=== PATIENT | male | born 1945 | race African-American/Black ===

== ENCOUNTER 2017-02-02 13:53 | Emergency (ER) | payer MEDICARE, MEDICAID ==
[~2017-02-02] VITALS: Ht 182.9 cm; Wt 59.0 kg
[~2017-02-02 13:53] MED LIST: ALBU18 INH; ASPI81CH43 PO; Atorvastatin Calcium PO; FLUT110A INH; OME20GT PO; ZOLP10TA6 PO
[2017-02-02 15:23] LABS: Basophils # (auto) 0.2 uL; Basophils % (auto) 2.7 % (0.0-2.0); Eosinophils # (auto) 0.2 uL; Eosinophils % (auto) 3.5 % (0.0-7.0); Hematocrit 50.7 % (41.0-53.0); Hemoglobin 16.5 g/dL (13.5-17.5); Lymphocytes # (auto) 3.2 uL; Lymphocytes % (auto) 48.8 % (10.0-50.0); Mean Corpuscular Hemoglobin 29.7 pg (28.0-32.0); Mean Corpuscular Hgb Conc. 32.5 g/dL (32.0-36.0); Mean Corpuscular Volume 91.4 fL (80.0-100.0); Mean Platelet Volume 9.4 fL (7.4-10.4); Monocytes # (auto) 0.6 uL; Monocytes % (auto) 8.7 % (0.0-12.0); Neutrophils # (auto) 2.4 uL; Neutrophils % (auto) 36.3 % (37.0-80.0); Platelet Count (auto) 248 10^3/uL (140-450); Red Cell Distribution Width 15.5 % (11.6-16.0); SUSPECT VIEW TRANSMISSION; White Blood Cell 6.6 10^3/uL (4.4-10.8)
[2017-02-02 15:59] LABS: Albumin 3.3 g/dL (3.4-5.0); Alkaline Phosphatase 99 U/L (45-117); Anion Gap 9 (5-15); Aspartate Aminotransferase 19 U/L (15-37); BUN/Creatinine Ratio 10.8; Bilirubin, Total 0.5 mg/dL (0.2-1.0); Blood Urea Nitrogen 23 mg/dL (7-18); Calcium 9.1 mg/dL (8.5-10.1); Carbon Dioxide 30 mmol/L (21-32); Chloride 103 mmol/L (98-107); GFR African American 40 mL/min; GFR Non-African American 33 mL/min; Glucose 98 mg/dL (74-106); Sodium 142 mmol/L (136-145); Total Protein 7.8 g/dL (6.4-8.2)
[2017-02-02 16:37] VITALS: BP 156/40
[2017-02-02 16:43] LABS: INR 1.05 (0.9-1.15); Prothrombin Time 11.3 sec (9.37-12.3)
[2017-02-02] MEDS ORDERED: LABETALOL HCL 5 MG/ML 4ML SYRINGE IV ONE (16:45)
[2017-02-02 16:58] LABS: Anisocytosis Slight; Large Platelets FEW; Platelet Estimate Adequate
[2017-02-02 16:59] LABS: Tear Drop Cells FEW
== END 2017-02-02 18:43 | disposition short-term general hospital (02) ==
LOC: ER 13:53 → EDBD 13:53 → ER 18:43
DX: I62.9 Nontraumatic intracranial hemorrhage, unspecified (principal); J44.9 Chronic obstructive pulmonary disease, unspecified; K21.9 Gastro-esophageal reflux disease without esophagitis; I10 Essential (primary) hypertension; F17.210 Nicotine dependence, cigarettes, uncomplicated; Z87.11 Personal history of peptic ulcer disease
CPT/HCPCS: 36415; 70450; 80053; 84484; 85025; 85610; 93005; 99291

== ENCOUNTER 2017-10-25 22:08 | Inpatient (IN) | payer MEDICARE, MEDICAID ==
[~2017-10-25] VITALS: Ht 177.8 cm; Wt 56.9 kg
[2017-10-25] MEDS ORDERED: methylPREDNISolone SOD SUCC 125 MG/2 ML VL ONE (22:17)
[2017-10-25] MEDS ORDERED: cloNIDine HCL 0.1 MG TAB ONE (22:23)
[2017-10-25] MEDS ORDERED: cloNIDine HCL 0.1 MG TAB PO ONE (22:30)
[2017-10-25] MEDS ORDERED: DILTIAZEM HCL 25 MG/5 ML VIAL IV ONE (22:30)
[2017-10-25] MEDS ORDERED: methylPREDNISolone SOD SUCC 125 MG/2 ML VL IV ONE (22:30)
[2017-10-25 22:38] LABS: Basophils # (auto) 0.1 uL; Basophils % (auto) 0.7 % (0.0-2.0); Eosinophils # (auto) 0 uL; Eosinophils % (auto) 0.2 % (0.0-7.0); Hematocrit 53.2 % (41.0-53.0); Hemoglobin 17.7 g/dL (13.5-17.5); Lymphocytes # (auto) 2.3 uL; Lymphocytes % (auto) 15.1 % (10.0-50.0); Mean Corpuscular Hemoglobin 31.6 pg (28.0-32.0); Mean Corpuscular Hgb Conc. 33.3 g/dL (32.0-36.0); Mean Corpuscular Volume 94.9 fL (80.0-100.0); Monocytes # (auto) 0.8 uL; Monocytes % (auto) 5.2 % (0.0-12.0); Neutrophils # (auto) 12.3 uL; Neutrophils % (auto) 78.8 % (37.0-80.0); Nucleated Red Blood Cells % 0.1 %; Platelet Count (auto) 251 10^3/uL (140-450); Red Blood Cells 5.61 10^6/uL (4.5-5.90); Red Cell Distribution Width 14.7 % (11.8-14.3); White Blood Cell 15.6 10^3/uL (4.4-10.8)
[2017-10-25 22:53] LABS: Alanine Aminotransferase 23 U/L (16-61); Albumin 3.6 g/dL (3.4-5.0); Anion Gap 10 (5-15); Aspartate Aminotransferase 47 U/L (15-37); BUN/Creatinine Ratio 10.7; Blood Urea Nitrogen 18 mg/dL (7-18); Calcium 8.9 mg/dL (8.5-10.1); Carbon Dioxide 22 mmol/L (21-32); Chloride 104 mmol/L (98-107); GFR African American 52 mL/min; GFR Non-African American 43 mL/min; Glucose 110 mg/dL (74-106); Magnesium 2.1 mg/dL (1.6-2.6); Potassium 5.5 mmol/L (3.5-5.1); Sodium 136 mmol/L (136-145)
[2017-10-25 22:55] LABS: Alkaline Phosphatase 110 U/L (45-117); Bilirubin, Total 0.6 mg/dL (0.2-1.0)
[2017-10-26] VITALS (7 sets, daily range): BP systolic 114–141; BP diastolic 54–101
[2017-10-26 01:21] LABS: Urine WBC None Seen /hpf (0 - 3)
[2017-10-26] MEDS ORDERED: FOLIC ACID 1 MG TAB PO ONE (01:45)
[2017-10-26] MEDS ORDERED: OMEPRAZOLE 20MG/10ML ORAL SUSP GT ONE (01:45)
[2017-10-26] MEDS ORDERED: amLODIPine BESYLATE 5 MG TAB PO ONE (01:45)
[2017-10-26] MEDS ORDERED: ZOLPIDEM TARTRATE 5 MG TAB PO ONE (01:45)
[2017-10-26] MEDS ORDERED: FUROSEMIDE 40 MG/4 ML VIAL IV ONE (01:45)
[2017-10-26 01:46] LABS: Urine Amorphous Crystal MOD /hpf (None Seen); Urine Bacteria MOD /hpf (None Seen); Urine Blood 1+ /uL (Negative); Urine Specific Gravity 1.014 (1.001-1.035)
[2017-10-26] MEDS ORDERED: ACETAMINOPHEN 500 MG TAB PO PRN (03:30)
[2017-10-26] MEDS ORDERED: ONDANSETRON HCL 4 MG/2 ML VIAL IV PRN (03:30)
[2017-10-26] MEDS ORDERED: HYDROcodone-ACET 5/325MG TAB PO PRN (03:30)
[2017-10-26 04:32] LABS: Basophils # (auto) 0 uL; Basophils % (auto) 0.2 % (0.0-2.0); Eosinophils # (auto) 0 uL; Hematocrit 51.2 % (41.0-53.0); Hemoglobin 16.9 g/dL (13.5-17.5); Lymphocytes # (auto) 0.5 uL; Lymphocytes % (auto) 2.7 % (10.0-50.0); Mean Corpuscular Hemoglobin 31.2 pg (28.0-32.0); Mean Corpuscular Hgb Conc. 32.9 g/dL (32.0-36.0); Mean Corpuscular Volume 94.7 fL (80.0-100.0); Monocytes # (auto) 0.1 uL; Monocytes % (auto) 0.5 % (0.0-12.0); Neutrophils % (auto) 96.6 % (37.0-80.0); Nucleated Red Blood Cells % 0.1 %; Platelet Count (auto) 236 10^3/uL (140-450); Red Blood Cells 5.41 10^6/uL (4.5-5.90); Red Cell Distribution Width 14.4 % (11.8-14.3); White Blood Cell 18.7 10^3/uL (4.4-10.8)
[2017-10-26] MEDS ORDERED: ENALAPRILAT 1.25 MG/ML-1ML VIAL IV ONE (04:45)
[2017-10-26 04:46] LABS: Albumin 3.3 g/dL (3.4-5.0); BUN/Creatinine Ratio 9.9; Calcium 9.3 mg/dL (8.5-10.1); Potassium 3.3 mmol/L (3.5-5.1)
[2017-10-26 04:47] LABS: Bilirubin, Total 0.7 mg/dL (0.2-1.0); Total Protein 7.9 g/dL (6.4-8.2)
[2017-10-26] MEDS ORDERED: AZITHROMYCIN 500MG/ 250ML 250 ML IV ONE (05:00)
[2017-10-26] MEDS: ALBUTEROL SULF 2.5 MG/0.5ML(0.5%) NEB SOLN NEB SCH ×3 (08:23→19:05)
[2017-10-26] MEDS: IPRATROPIUM BROM 0.5 MG/2.5ML INH SOL NEB SCH ×3 (08:24→19:05)
[2017-10-26] MEDS: ASPirin 81 mg TAB PO SCH (10:00)
[2017-10-26] MEDS: amLODIPine BESYLATE 5 MG TAB PO SCH (10:02)
[2017-10-26] MEDS ORDERED: SODIUM CHLORIDE 0.9% 1,000 ML IV ONE (13:15)
[2017-10-26] MEDS ORDERED: predniSONE 20 MG TAB PO ONE (13:22)
[2017-10-26] MEDS ORDERED: diphenhdrAMINE HCL 50 MG/1 ML VL IV PRN (13:30)
[2017-10-26] MEDS: SOD CHL 0.45% WITH 20MEQ KCL 1,000 ML IV SCH (16:00)
[2017-10-26] MEDS: ATORVASTATIN 20 MG TAB PO SCH (21:58)
[2017-10-26] MEDS: ZOLPIDEM TARTRATE 5 MG TAB PO SCH (21:58)
[2017-10-27] VITALS (7 sets, daily range): BP systolic 122–158; BP diastolic 74–99
[2017-10-27] MEDS: ALBUTEROL SULF 2.5 MG/0.5ML(0.5%) NEB SOLN NEB SCH ×4 (00:38→18:57)
[2017-10-27] MEDS: IPRATROPIUM BROM 0.5 MG/2.5ML INH SOL NEB SCH ×4 (00:38→18:57)
[2017-10-27] MEDS: SOD CHL 0.45% WITH 20MEQ KCL 1,000 ML IV SCH ×2 (03:50→16:16)
[2017-10-27] MEDS: cefTRIAXone 1GM/10ml IVPUSH 10 ML IV SCH ×2 (07:22→09:15)
[2017-10-27] MEDS: AZITHROMYCIN 500MG/ 250ML 250 ML IV SCH (09:16)
[2017-10-27] MEDS: predniSONE 20 MG TAB PO SCH (09:17)
[2017-10-27] MEDS: amLODIPine BESYLATE 5 MG TAB PO SCH (09:17)
[2017-10-27] MEDS: ASPirin 81 mg TAB PO SCH (09:17)
[2017-10-27 19:19] LABS: Basophils # (auto) 0.1 uL; Basophils % (auto) 0.7 % (0.0-2.0); Eosinophils # (auto) 0 uL; Hematocrit 50.9 % (41.0-53.0); Lymphocytes # (auto) 1.1 uL; Lymphocytes % (auto) 7.5 % (10.0-50.0); Mean Corpuscular Hemoglobin 31.8 pg (28.0-32.0); Mean Corpuscular Hgb Conc. 33.5 g/dL (32.0-36.0); Mean Corpuscular Volume 95.1 fL (80.0-100.0); Monocytes # (auto) 0.4 uL; Monocytes % (auto) 2.8 % (0.0-12.0); Neutrophils # (auto) 12.6 uL; Nucleated Red Blood Cells % 0.2 %; Platelet Count (auto) 235 10^3/uL (140-450); Red Blood Cells 5.35 10^6/uL (4.5-5.90); Red Cell Distribution Width 14.8 % (11.8-14.3); White Blood Cell 14.2 10^3/uL (4.4-10.8)
[2017-10-27 19:34] LABS: BUN/Creatinine Ratio 17.8
[2017-10-27 19:35] LABS: Calcium 9.3 mg/dL (8.5-10.1)
[2017-10-27] MEDS: ATORVASTATIN 20 MG TAB PO SCH (21:44)
[2017-10-27] MEDS: ZOLPIDEM TARTRATE 5 MG TAB PO SCH (21:44)
[2017-10-28] VITALS (8 sets, daily range): BP systolic 120–159; BP diastolic 71–104
[2017-10-28] MEDS: IPRATROPIUM BROM 0.5 MG/2.5ML INH SOL NEB SCH ×4 (00:48→19:43)
[2017-10-28] MEDS: ALBUTEROL SULF 2.5 MG/0.5ML(0.5%) NEB SOLN NEB SCH ×4 (00:48→19:43)
[2017-10-28] MEDS: SOD CHL 0.45% WITH 20MEQ KCL 1,000 ML IV SCH ×2 (07:00→19:50)
[2017-10-28 08:32] LABS: Basophils # (auto) 0.1 uL; Basophils % (auto) 0.6 % (0.0-2.0); Eosinophils # (auto) 0 uL; Eosinophils % (auto) 0.1 % (0.0-7.0); Hematocrit 50.6 % (41.0-53.0); Hemoglobin 16.9 g/dL (13.5-17.5); Lymphocytes # (auto) 3.2 uL; Lymphocytes % (auto) 23.5 % (10.0-50.0); Mean Corpuscular Hemoglobin 31.6 pg (28.0-32.0); Mean Corpuscular Hgb Conc. 33.3 g/dL (32.0-36.0); Mean Corpuscular Volume 94.7 fL (80.0-100.0); Monocytes # (auto) 0.9 uL; Monocytes % (auto) 6.8 % (0.0-12.0); Neutrophils # (auto) 9.5 uL; Platelet Count (auto) 238 10^3/uL (140-450); Red Blood Cells 5.34 10^6/uL (4.5-5.90); Red Cell Distribution Width 14.9 % (11.8-14.3); White Blood Cell 13.8 10^3/uL (4.4-10.8)
[2017-10-28 08:38] LABS: Calcium 9.2 mg/dL (8.5-10.1); Potassium 4.1 mmol/L (3.5-5.1)
[2017-10-28 08:41] LABS: BUN/Creatinine Ratio 19.4
[2017-10-28] MEDS: cefTRIAXone 1GM/10ml IVPUSH 10 ML IV SCH ×2 (09:00→09:10)
[2017-10-28] MEDS: ASPirin 81 mg TAB PO SCH (09:10)
[2017-10-28] MEDS: amLODIPine BESYLATE 5 MG TAB PO SCH (09:11)
[2017-10-28] MEDS: predniSONE 20 MG TAB PO SCH (09:11)
[2017-10-28] MEDS: AZITHROMYCIN 500MG/ 250ML 250 ML IV SCH (09:12)
[2017-10-28] MEDS: CAPTOPRIL 25 MG TAB PO PRN (17:16)
[2017-10-28] MEDS: ZOLPIDEM TARTRATE 5 MG TAB PO SCH (21:41)
[2017-10-28] MEDS: ATORVASTATIN 20 MG TAB PO SCH (21:41)
[2017-10-28] MEDS: Boost Glucose Control 8 Ounces PO SCH (21:41)
[2017-10-29] VITALS (7 sets, daily range): BP systolic 150–164; BP diastolic 88–120
[2017-10-29] MEDS: CAPTOPRIL 25 MG TAB PO PRN (04:52)
[2017-10-29 05:48] LABS: Basophils # (auto) 0.1 uL; Eosinophils # (auto) 0 uL; Eosinophils % (auto) 0.1 % (0.0-7.0); Monocytes # (auto) 0.7 uL; Nucleated Red Blood Cells % 0.1 %
[2017-10-29 05:51] LABS: Hematocrit 52.7 % (41.0-53.0); Hemoglobin 17.5 g/dL (13.5-17.5); Lymphocytes # (auto) 2.4 uL; Lymphocytes % (auto) 18.8 % (10.0-50.0); Mean Corpuscular Hemoglobin 31.8 pg (28.0-32.0); Mean Corpuscular Hgb Conc. 33.1 g/dL (32.0-36.0); Mean Corpuscular Volume 95.9 fL (80.0-100.0); Monocytes % (auto) 5.5 % (0.0-12.0); Neutrophils # (auto) 9.6 uL; Neutrophils % (auto) 74.6 % (37.0-80.0); Platelet Count (auto) 269 10^3/uL (140-450); Red Cell Distribution Width 14.6 % (11.8-14.3); White Blood Cell 12.8 10^3/uL (4.4-10.8)
[2017-10-29] MEDS: Boost Glucose Control 8 Ounces PO SCH ×3 (05:52→22:00)
[2017-10-29 06:24] LABS: Lactic Acid w/Reflex 2.2 mmol/L (0.4-2.0)
[2017-10-29 06:24] LABS: BUN/Creatinine Ratio 17.8; Calcium 8.8 mg/dL (8.5-10.1); Magnesium 2.5 mg/dL (1.6-2.6); Potassium 4.4 mmol/L (3.5-5.1)
[2017-10-29] MEDS: ALBUTEROL SULF 2.5 MG/0.5ML(0.5%) NEB SOLN NEB SCH ×4 (06:55→19:31)
[2017-10-29] MEDS: IPRATROPIUM BROM 0.5 MG/2.5ML INH SOL NEB SCH ×4 (06:55→19:30)
[2017-10-29] MEDS: amLODIPine BESYLATE 5 MG TAB PO SCH (08:23)
[2017-10-29] MEDS ORDERED: cloNIDine HCL 0.1 MG TAB PO PRN (08:30)
[2017-10-29] MEDS: cefTRIAXone 1GM/10ml IVPUSH 10 ML IV SCH (09:17)
[2017-10-29] MEDS: ASPirin 81 mg TAB PO SCH (09:18)
[2017-10-29] MEDS: predniSONE 20 MG TAB PO SCH (09:18)
[2017-10-29] MEDS: AZITHROMYCIN 500MG/ 250ML 250 ML IV SCH (09:18)
[2017-10-29] MEDS: LISINOPRIL 10 MG TAB PO SCH (09:19)
[2017-10-29] MEDS: ZOLPIDEM TARTRATE 5 MG TAB PO SCH (21:30)
[2017-10-29] MEDS: ATORVASTATIN 20 MG TAB PO SCH (21:30)
[2017-10-30 05:00] VITALS: BP 160/108
[2017-10-30 05:43] LABS: Basophils # (auto) 0.1 uL; Eosinophils # (auto) 0 uL; Hematocrit 50.4 % (41.0-53.0); Hemoglobin 16.9 g/dL (13.5-17.5); Lymphocytes # (auto) 2.5 uL; Lymphocytes % (auto) 18.9 % (10.0-50.0); Mean Corpuscular Hemoglobin 32.1 pg (28.0-32.0); Mean Corpuscular Hgb Conc. 33.6 g/dL (32.0-36.0); Mean Corpuscular Volume 95.4 fL (80.0-100.0); Monocytes # (auto) 0.6 uL; Monocytes % (auto) 4.7 % (0.0-12.0); Neutrophils # (auto) 9.8 uL; Neutrophils % (auto) 75.4 % (37.0-80.0); Nucleated Red Blood Cells % 0.1 %; Platelet Count (auto) 243 10^3/uL (140-450); Red Blood Cells 5.29 10^6/uL (4.5-5.90); Red Cell Distribution Width 14.8 % (11.8-14.3)
[2017-10-30] MEDS: Boost Glucose Control 8 Ounces PO SCH (06:00)
[2017-10-30 06:01] LABS: BUN/Creatinine Ratio 18.6; Potassium 4.5 mmol/L (3.5-5.1)
[2017-10-30] MEDS: IPRATROPIUM BROM 0.5 MG/2.5ML INH SOL NEB SCH ×3 (06:47→11:57)
[2017-10-30] MEDS: ALBUTEROL SULF 2.5 MG/0.5ML(0.5%) NEB SOLN NEB SCH ×3 (06:47→11:57)
[2017-10-30] MEDS: cefTRIAXone 1GM/10ml IVPUSH 10 ML IV SCH (09:28)
[2017-10-30] MEDS: predniSONE 20 MG TAB PO SCH (09:28)
[2017-10-30] MEDS: LISINOPRIL 10 MG TAB PO SCH (09:29)
[2017-10-30] MEDS: ASPirin 81 mg TAB PO SCH (09:30)
[2017-10-30] MEDS: amLODIPine BESYLATE 5 MG TAB PO SCH (09:30)
[2017-10-30] MEDS: AZITHROMYCIN 500MG/ 250ML 250 ML IV SCH (09:46)
[2017-10-30] MEDS ORDERED: IPR002IS NEB (12:22)
[2017-10-30] MEDS ORDERED: ALB5IS NEB (12:22)
[2017-10-30] MEDS ORDERED: AZIT250T8 PO (12:23)
[2017-10-30] MEDS ORDERED: METH4PAK PO (12:23)
[2017-10-30] MEDS ORDERED: LISI10TA6 PO (12:23)
[2017-10-30 13:00] VITALS: BP 145/93
[2017-12-26] MEDS ORDERED: UMEC1AER IN (11:39)
== END 2017-10-30 16:20 | disposition home health service (06) | DRG 189 ==
LOC: EDUNIT# 22:08 → EDBD 22:08 → ER 22:16 → TELE 22:17 → TELE-WESTW 10-26 06:13
PROVIDERS: ADMIT Nurse Practitioner Family; ATTEND Internal Medicine
PROC: 5A09357 Assistance with Respiratory Ventilation, Less than 24 Consecutive Hours, Continuous Positive Airway Pressure (ICD-10-PCS; principal; 2017-10-25)
DX: J96.20 Acute and chronic respiratory failure, unspecified whether with hypoxia or hypercapnia (principal); E87.2 Acidosis; I13.0 Hypertensive heart and chronic kidney disease with heart failure and stage 1 through stage 4 chronic kidney disease, or unspecified chronic kidney disease; E87.5 Hyperkalemia; I50.9 Heart failure, unspecified; J44.1 Chronic obstructive pulmonary disease with (acute) exacerbation; N18.9 Chronic kidney disease, unspecified; K21.9 Gastro-esophageal reflux disease without esophagitis; K27.9 Peptic ulcer, site unspecified, unspecified as acute or chronic, without hemorrhage or perforation; D72.829 Elevated white blood cell count, unspecified; E87.6 Hypokalemia; F17.210 Nicotine dependence, cigarettes, uncomplicated; R79.1 Abnormal coagulation profile; Z79.51 Long term (current) use of inhaled steroids; Z79.899 Other long term (current) drug therapy; Z82.0 Family history of epilepsy and other diseases of the nervous system; Z82.3 Family history of stroke; Z82.49 Family history of ischemic heart disease and other diseases of the circulatory system; Z83.3 Family history of diabetes mellitus; Z87.11 Personal history of peptic ulcer disease; Z86.73 Personal history of transient ischemic attack (TIA), and cerebral infarction without residual deficits; Z93.1 Gastrostomy status; Z87.01 Personal history of pneumonia (recurrent)
CPT/HCPCS: 36415; 36600; 51702; 71045; 78582; 80048; 80053; 81001; 82805; 83605; 83735; 84484; 85025; 85379; 87040; 87077; 87081; 87086; 87186; 87400; 92610; 93005; 94640; 94660; 96365; 96375; 97163

== ENCOUNTER 2017-11-18 04:13 | Inpatient (IN) | payer MEDICARE, MEDICAID ==
[~2017-11-18] VITALS: Ht 180.3 cm; Wt 46.9 kg
[~2017-11-18 04:13] MED LIST changes: +ALB5IS NEB; +AZIT250T8 PO; +IPR002IS NEB; +LISI10TA6 PO; +METH4PAK PO
[2017-11-18] MEDS ORDERED: PANTOPRAZOLE 40 MG/10 ML VIAL IV ONE ×2 (04:30→06:43)
[2017-11-18] MEDS ORDERED: PANTOPRAZOLE 80 MG in SODIUM CHL 0.9% 60 ML IV ONE (04:30)
[2017-11-18] MEDS ORDERED: SODIUM CHLORIDE 0.9% 1,000 ML IV ONE ×2 (04:45→06:00)
[2017-11-18 04:57] LABS: Basophils # (auto) 0.1 uL; Eosinophils # (auto) 0 uL; Eosinophils % (auto) 0.4 % (0.0-7.0); Lymphocytes # (auto) 1.9 uL; Monocytes # (auto) 0.5 uL; Monocytes % (auto) 4.7 % (0.0-12.0); Neutrophils # (auto) 8.1 uL
[2017-11-18 04:58] LABS: Basophils % (auto) 1.2 % (0.0-2.0); Hemoglobin 20.2 g/dL (13.5-17.5); Mean Corpuscular Hgb Conc. 33.5 g/dL (32.0-36.0); Mean Corpuscular Volume 95.4 fL (80.0-100.0); Neutrophils % (auto) 75.7 % (37.0-80.0); Nucleated Red Blood Cells % 0.1 %; Platelet Count (auto) 184 10^3/uL (140-450); Red Blood Cells 6.31 10^6/uL (4.5-5.90); Red Cell Distribution Width 15.3 % (11.8-14.3); White Blood Cell 10.7 10^3/uL (4.4-10.8)
[2017-11-18 05:15] LABS: INR 1.06 (0.9-1.15); Partial Thromboplastin Time 27.5 sec (22.64-33.71); Prothrombin Time 11.6 sec (9.37-12.3)
[2017-11-18 05:23] LABS: Alanine Aminotransferase 26 U/L (16-61); Albumin 2.9 g/dL (3.4-5.0); Alkaline Phosphatase 98 U/L (45-117); Anion Gap 14 (5-15); Aspartate Aminotransferase 28 U/L (15-37); BUN/Creatinine Ratio 23.2; Bilirubin, Total 0.6 mg/dL (0.2-1.0); Calcium 9.3 mg/dL (8.5-10.1); Carbon Dioxide 22 mmol/L (21-32); Chloride 107 mmol/L (98-107); GFR African American 15 mL/min; GFR Non-African American 13 mL/min; Glucose 143 mg/dL (74-106); Sodium 143 mmol/L (136-145); Total Protein 8.2 g/dL (6.4-8.2)
[2017-11-18 05:27] LABS: Blood Urea Nitrogen 112 mg/dL (7-18)
[2017-11-18 05:41] LABS: Hematocrit 60.1 % (41.0-53.0)
[2017-11-18] MEDS ORDERED: SODIUM CHLORIDE 0.9% 1,000 ML IV SCH (07:45)
[2017-11-18] MEDS ORDERED: MORPHINE SULFATE 4 MG/ML SYR/VIAL IV PRN (07:45)
[2017-11-18] MEDS ORDERED: NITROGLYCERIN 0.4 MG SL TAB SL PRN (07:45)
[2017-11-18 07:55] LABS: Urine Bacteria NONE SEEN /hpf (None Seen); Urine Blood Negative /uL (Negative); Urine Mucus FEW (None Seen); Urine Specific Gravity 1.015 (1.001-1.035); Urine WBC 4 /hpf (0 - 3)
[2017-11-18 12:43] LABS: Hematocrit 55.3 % (41.0-53.0); Hemoglobin 17.9 g/dL (13.5-17.5)
[2017-11-18] MEDS: SODIUM CHLORIDE 0.9% 1,000 ML IV SCH ×2 (13:18→17:31)
[2017-11-18 13:25] LABS: Protein, Urine 54.9 mg/dL (0.0-11.9)
[2017-11-18] MEDS ORDERED: AZITHROMYCIN 500MG/ 250ML 250 ML IV ONE (16:00)
[2017-11-18 17:07] VITALS: BP 128/58
[2017-11-18 19:08] LABS: Hemoglobin 15.2 g/dL (13.5-17.5)
[2017-11-18 20:00] VITALS: BP 119/77
[2017-11-18] MEDS ORDERED: TEMAZEPAM 15 MG CAP PO SCH (22:00)
[2017-11-18 22:10] VITALS: BP 119/77
[2017-11-19] MEDS: SODIUM CHLORIDE 0.9% 1,000 ML IV SCH ×3 (00:09→12:54)
[2017-11-19 05:11] VITALS: BP 117/69
[2017-11-19 08:09] LABS: Basophils # (auto) 0.1 uL; Basophils % (auto) 0.5 % (0.0-2.0); Eosinophils # (auto) 0.2 uL; Eosinophils % (auto) 1.8 % (0.0-7.0); Hematocrit 48.7 % (41.0-53.0); Hemoglobin 15.2 g/dL (13.5-17.5); Lymphocytes # (auto) 2.2 uL; Lymphocytes % (auto) 19.1 % (10.0-50.0); Mean Corpuscular Hemoglobin 31.9 pg (28.0-32.0); Mean Corpuscular Hgb Conc. 31.3 g/dL (32.0-36.0); Mean Corpuscular Volume 101.9 fL (80.0-100.0); Monocytes # (auto) 0.5 uL; Monocytes % (auto) 3.8 % (0.0-12.0); Neutrophils # (auto) 8.8 uL; Neutrophils % (auto) 74.8 % (37.0-80.0); Nucleated Red Blood Cells % 0.1 %; Platelet Count (auto) 146 10^3/uL (140-450); Red Blood Cells 4.77 10^6/uL (4.5-5.90); Red Cell Distribution Width 16.7 % (11.8-14.3); White Blood Cell 11.7 10^3/uL (4.4-10.8)
[2017-11-19 09:00] VITALS: BP 127/72
[2017-11-19] MEDS ORDERED: amLODIPine BESYLATE 5 MG TAB PO SCH (10:00)
[2017-11-19] MEDS ORDERED: AZITHROMYCIN 500MG/ 250ML 250 ML IV SCH (10:00)
[2017-11-19] MEDS ORDERED: PANTOPRAZOLE 40 MG/10 ML VIAL IV SCH (10:00)
[2017-11-19 11:33] LABS: Albumin 2.2 g/dL (3.4-5.0); BUN/Creatinine Ratio 26.6; Bilirubin, Total 0.4 mg/dL (0.2-1.0); Calcium 8.3 mg/dL (8.5-10.1); Potassium 5.1 mmol/L (3.5-5.1); Total Protein 6.2 g/dL (6.4-8.2)
[2017-11-19 11:43] LABS: Phosphorus 3.1 mg/dL (2.5-4.90); Uric Acid 7.6 mg/dL (3.5-7.2)
[2017-11-19 13:00] VITALS: BP 109/66
[2017-11-19 13:10] VITALS: BP 127/72
[2017-11-19 13:53] VITALS: BP 109/66
[2017-12-26] MEDS ORDERED: UMEC1AER IN (11:39)
== END 2017-11-19 14:45 | disposition home or self-care (01) | DRG 377 ==
LOC: EDBD 04:13 → ER 04:13 → TELE 04:14 → TELE-WESTW 09:24
PROVIDERS: ADMIT Nurse Practitioner Family; ATTEND Nurse Practitioner Family
DX: K57.31 Diverticulosis of large intestine without perforation or abscess with bleeding (principal); J18.1 Lobar pneumonia, unspecified organism; N17.0 Acute kidney failure with tubular necrosis; N18.4 Chronic kidney disease, stage 4 (severe); E86.0 Dehydration; J44.0 Chronic obstructive pulmonary disease with (acute) lower respiratory infection; F17.210 Nicotine dependence, cigarettes, uncomplicated; I12.9 Hypertensive chronic kidney disease with stage 1 through stage 4 chronic kidney disease, or unspecified chronic kidney disease; K21.9 Gastro-esophageal reflux disease without esophagitis; Z96.641 Presence of right artificial hip joint; K27.9 Peptic ulcer, site unspecified, unspecified as acute or chronic, without hemorrhage or perforation; Z79.51 Long term (current) use of inhaled steroids; Z79.899 Other long term (current) drug therapy; Z93.1 Gastrostomy status; Z82.0 Family history of epilepsy and other diseases of the nervous system; Z82.3 Family history of stroke; Z82.49 Family history of ischemic heart disease and other diseases of the circulatory system; Z83.3 Family history of diabetes mellitus; Z86.73 Personal history of transient ischemic attack (TIA), and cerebral infarction without residual deficits; Z90.81 Acquired absence of spleen; Z74.01 Bed confinement status; Z88.0 Allergy status to penicillin
CPT/HCPCS: 36415; 71045; 74176; 76775; 80053; 81001; 82306; 82378; 82570; 83880; 83970; 84100; 84156; 84300; 84484; 84550; 85014; 85018; 85025; 85610; 85730; 86850; 86900; 86901; 87081; 93005; 96365; 96366; 96375; 99291; C9113

== ENCOUNTER 2017-11-20 08:53 | Inpatient (IN) | payer MEDICARE, MEDICAID ==
[~2017-11-20] VITALS: Ht 180.3 cm; Wt 68.3 kg
[~2017-11-20 08:53] MED LIST changes: -ALBU18 INH; -ASPI81CH43 PO; -AZIT250T8 PO; -FLUT110A INH; -IPR002IS NEB; -METH4PAK PO
[2017-11-20 11:00] LABS: Basophils # (auto) 0.1 uL; Basophils % (auto) 0.6 % (0.0-2.0); Eosinophils # (auto) 0.1 uL; Eosinophils % (auto) 1.5 % (0.0-7.0); Hematocrit 51.7 % (41.0-53.0); Hemoglobin 16.7 g/dL (13.5-17.5); Lymphocytes # (auto) 2.5 uL; Lymphocytes % (auto) 30.3 % (10.0-50.0); Mean Corpuscular Hemoglobin 31.7 pg (28.0-32.0); Mean Corpuscular Hgb Conc. 32.2 g/dL (32.0-36.0); Mean Corpuscular Volume 98.4 fL (80.0-100.0); Monocytes # (auto) 0.5 uL; Monocytes % (auto) 6.4 % (0.0-12.0); Neutrophils % (auto) 61.2 % (37.0-80.0); Nucleated Red Blood Cells % 0.3 %; Platelet Count (auto) 183 10^3/uL (140-450); Red Blood Cells 5.25 10^6/uL (4.5-5.90); Red Cell Distribution Width 16.2 % (11.8-14.3); White Blood Cell 8.1 10^3/uL (4.4-10.8)
[2017-11-20 11:20] LABS: Albumin 2.6 g/dL (3.4-5.0); BUN/Creatinine Ratio 32.2; Bilirubin, Total 0.6 mg/dL (0.2-1.0); Calcium 9.3 mg/dL (8.5-10.1); Total Protein 7.5 g/dL (6.4-8.2)
[2017-11-20] MEDS ORDERED: ALBUTEROL SULF 2.5 MG/0.5ML(0.5%) NEB SOLN NEB STA (11:34)
[2017-11-20] MEDS ORDERED: CALCIUM GLUC 4.65meq/50ml D5AE 50 ML IV ONE (11:45)
[2017-11-20] MEDS ORDERED: SODIUM POLYSTYRENE SULF 15GM/60ML SUSP PO ONE (11:45)
[2017-11-20] MEDS ORDERED: DEXTROSE (50%) 50ML SYRG IV ONE (11:45)
[2017-11-20] MEDS ORDERED: InsuLIN REG 1unit/0.01ml Soln (100units/ml) IV ONE (11:45)
[2017-11-20] MEDS ORDERED: SODIUM BICARBONATE 8.4% INJ 50ML SYRINGE IV ONE (11:45)
[2017-11-20] MEDS ORDERED: SODIUM CHLORIDE 0.9% 1,000 ML IV SCH (13:12)
[2017-11-20] MEDS ORDERED: Fibersource Hn 1 Liter GT SCH (13:15)
[2017-11-20] MEDS ORDERED: PANTOPRAZOLE 40 MG/10 ML VIAL IV ONE (13:15)
[2017-11-20] MEDS ORDERED: NITROGLYCERIN 0.4 MG SL TAB SL PRN (13:15)
[2017-11-20] MEDS ORDERED: FAMOTIDINE (10MG/ML) 2ML VL IV ONE (13:15)
[2017-11-20] MEDS ORDERED: ONDANSETRON HCL 4 MG/2 ML VIAL IV PRN (13:15)
[2017-11-20] MEDS ORDERED: MORPHINE SULFATE 4 MG/ML SYR/VIAL IV PRN ×2 (13:15)
[2017-11-20] MEDS ORDERED: AZITHROMYCIN 500MG/ 250ML 250 ML IV ONE (13:30)
[2017-11-20] MEDS ORDERED: cefTRIAXone 1GM/10ml IVPUSH 10 ML IV ONE (13:30)
[2017-11-20 14:03] LABS: Hematocrit 43.4 % (41.0-53.0); Hemoglobin 13.9 g/dL (13.5-17.5)
[2017-11-20] MEDS ORDERED: GOLYTELY 4L KIT PO ONE (16:15)
[2017-11-20] MEDS ORDERED: GOLYTELY 4L KIT ONE (16:15)
[2017-11-20] MEDS: ATORVASTATIN 20 MG TAB PO SCH (22:26)
[2017-11-20] MEDS: PANTOPRAZOLE 40 MG/10 ML VIAL IV SCH (22:26)
[2017-11-20 23:15] VITALS: BP 127/72
[2017-11-20 23:46] VITALS: BP 127/72
[2017-11-21] MEDS ORDERED: FURO40TA4 PO (04:18)
[2017-11-21] MEDS ORDERED: FOLI1TAB6 PO (04:18)
[2017-11-21 05:30] VITALS: BP 134/74
[2017-11-21 07:05] LABS: Basophils # (auto) 0.4 uL; Basophils % (auto) 4.2 % (0.0-2.0); Eosinophils # (auto) 0.2 uL; Eosinophils % (auto) 1.9 % (0.0-7.0); Hemoglobin 13.5 g/dL (13.5-17.5); Lymphocytes # (auto) 1.7 uL; Lymphocytes % (auto) 18.9 % (10.0-50.0); Mean Corpuscular Hemoglobin 31.8 pg (28.0-32.0); Mean Corpuscular Hgb Conc. 32.9 g/dL (32.0-36.0); Mean Corpuscular Volume 96.6 fL (80.0-100.0); Monocytes # (auto) 0.3 uL; Monocytes % (auto) 3.8 % (0.0-12.0); Neutrophils # (auto) 6.4 uL; Neutrophils % (auto) 71.2 % (37.0-80.0); Nucleated Red Blood Cells % 0.2 %; Platelet Count (auto) 207 10^3/uL (140-450); Red Blood Cells 4.24 10^6/uL (4.5-5.90); Red Cell Distribution Width 15.7 % (11.8-14.3)
[2017-11-21 07:38] LABS: Albumin 2.4 g/dL (3.4-5.0); BUN/Creatinine Ratio 25.1; Bilirubin, Total 0.6 mg/dL (0.2-1.0); Calcium 9.1 mg/dL (8.5-10.1); Potassium 5.1 mmol/L (3.5-5.1); Total Protein 6.5 g/dL (6.4-8.2)
[2017-11-21 08:17] LABS: INR 0.97 (0.9-1.15); Prothrombin Time 10.6 sec (9.37-12.3)
[2017-11-21] MEDS ORDERED: SODIUM CHLORIDE LOCK 10 ML ONE (08:17)
[2017-11-21] MEDS ORDERED: diphenhdrAMINE HCL 50 MG/1 ML VL ONE (08:18)
[2017-11-21] MEDS ORDERED: cefTRIAXone 1GM/10ml IVPUSH 10 ML IV SCH (09:00)
[2017-11-21 09:11] VITALS: BP 139/84
[2017-11-21] MEDS: LISINOPRIL 10 MG TAB PO SCH (09:30)
[2017-11-21] MEDS: PANTOPRAZOLE 40 MG/10 ML VIAL IV SCH ×2 (09:31→22:43)
[2017-11-21] MEDS ORDERED: AZITHROMYCIN 500MG/ 250ML 250 ML IV SCH (10:00)
[2017-11-21] MEDS ORDERED: LISINOPRIL 10 MG TAB PO SCH (10:00)
[2017-11-21] MEDS ORDERED: PANTOPRAZOLE 40 MG/10 ML VIAL IV SCH (10:00)
[2017-11-21] MEDS ORDERED: FAMOTIDINE (10MG/ML) 2ML VL IV SCH (10:00)
[2017-11-21 12:00] VITALS: BP 114/75
[2017-11-21] MEDS ORDERED: LIDOCAINE VISCOUS 2% 15ML UD ONE (12:50)
[2017-11-21] MEDS: fentaNYL CITRATE 100 MCG/2 ML VL ONE ×3 (12:51→13:27)
[2017-11-21] MEDS: MIDAZOLAM HCL 5 MG/ML-1ML VIAL ONE ×3 (12:51→13:27)
[2017-11-21 17:00] VITALS: BP 128/72
[2017-11-21] MEDS: FREE WATER GT SCH (18:23)
[2017-11-21] MEDS: D5W 5% 1,000 ML IV SCH (18:23)
[2017-11-21 20:00] VITALS: BP 112/75
[2017-11-21 21:34] VITALS: BP 112/75
[2017-11-21] MEDS: ATORVASTATIN 20 MG TAB PO SCH (22:44)
[2017-11-22 04:47] VITALS: BP 105/62
[2017-11-22] MEDS: FREE WATER GT SCH ×4 (07:36→18:22)
[2017-11-22] MEDS: D5W 5% 1,000 ML IV SCH ×3 (07:36→23:18)
[2017-11-22 09:00] VITALS: BP 131/70
[2017-11-22 09:33] LABS: Basophils # (auto) 0 uL; Basophils % (auto) 0.3 % (0.0-2.0); Eosinophils # (auto) 0.8 uL; Hematocrit 39.9 % (41.0-53.0); Hemoglobin 12.9 g/dL (13.5-17.5); Lymphocytes # (auto) 2.1 uL; Lymphocytes % (auto) 15.1 % (10.0-50.0); Mean Corpuscular Hemoglobin 31.3 pg (28.0-32.0); Mean Corpuscular Hgb Conc. 32.3 g/dL (32.0-36.0); Mean Corpuscular Volume 96.8 fL (80.0-100.0); Monocytes # (auto) 0.5 uL; Monocytes % (auto) 3.7 % (0.0-12.0); Neutrophils # (auto) 10.3 uL; Neutrophils % (auto) 74.9 % (37.0-80.0); Nucleated Red Blood Cells % 0.5 %; Platelet Count (auto) 194 10^3/uL (140-450); Red Blood Cells 4.12 10^6/uL (4.5-5.90); Red Cell Distribution Width 15.3 % (11.8-14.3); White Blood Cell 13.8 10^3/uL (4.4-10.8)
[2017-11-22 09:53] LABS: BUN/Creatinine Ratio 19.4; Calcium 8.4 mg/dL (8.5-10.1); Potassium 4.7 mmol/L (3.5-5.1)
[2017-11-22 10:10] LABS: Albumin 2.2 g/dL (3.4-5.0); Bilirubin, Total 0.4 mg/dL (0.2-1.0); Total Protein 6.2 g/dL (6.4-8.2)
[2017-11-22] MEDS: PANTOPRAZOLE 40 MG/10 ML VIAL IV SCH ×2 (10:44→23:16)
[2017-11-22] MEDS: LISINOPRIL 10 MG TAB PO SCH (10:45)
[2017-11-22 13:00] VITALS: BP 122/79
[2017-11-22 16:49] VITALS: BP 116/72
[2017-11-22 21:44] VITALS: BP 98/58
[2017-11-22] MEDS: ATORVASTATIN 20 MG TAB PO SCH (23:16)
[2017-11-23 04:56] VITALS: BP 101/59
[2017-11-23] MEDS: D5W 5% 1,000 ML IV SCH ×2 (05:50→15:30)
[2017-11-23] MEDS: FREE WATER GT SCH ×4 (05:50→18:00)
[2017-11-23 07:16] LABS: Basophils # (auto) 0.2 uL; Basophils % (auto) 1.3 % (0.0-2.0); Eosinophils # (auto) 0.5 uL; Eosinophils % (auto) 4.5 % (0.0-7.0); Hematocrit 36.9 % (41.0-53.0); Hemoglobin 12.1 g/dL (13.5-17.5); Lymphocytes % (auto) 16.3 % (10.0-50.0); Mean Corpuscular Hgb Conc. 32.8 g/dL (32.0-36.0); Mean Corpuscular Volume 97.6 fL (80.0-100.0); Monocytes # (auto) 0.7 uL; Monocytes % (auto) 5.7 % (0.0-12.0); Neutrophils # (auto) 8.7 uL; Neutrophils % (auto) 72.2 % (37.0-80.0); Nucleated Red Blood Cells % 1.2 %; Platelet Count (auto) 235 10^3/uL (140-450); Red Blood Cells 3.78 10^6/uL (4.5-5.90); Red Cell Distribution Width 15.5 % (11.8-14.3); White Blood Cell 12.1 10^3/uL (4.4-10.8)
[2017-11-23 07:37] LABS: Albumin 2.2 g/dL (3.4-5.0); BUN/Creatinine Ratio 15.9; Bilirubin, Total 0.4 mg/dL (0.2-1.0); Calcium 8.5 mg/dL (8.5-10.1); Potassium 4.6 mmol/L (3.5-5.1); Total Protein 6.3 g/dL (6.4-8.2)
[2017-11-23 08:00] VITALS: BP 105/66
[2017-11-23] MEDS: LISINOPRIL 10 MG TAB PO SCH (10:00)
[2017-11-23] MEDS: PANTOPRAZOLE 40 MG/10 ML VIAL IV SCH ×2 (11:04→23:12)
[2017-11-23 12:00] VITALS: BP 116/60
[2017-11-23 17:00] VITALS: BP 107/75
[2017-11-23 22:00] VITALS: BP 113/67
[2017-11-23] MEDS: ATORVASTATIN 20 MG TAB PO SCH (23:12)
[2017-11-24 05:00] VITALS: BP 125/66
[2017-11-24] MEDS: FREE WATER GT SCH ×3 (06:00→12:26)
[2017-11-24 07:11] LABS: Partial Thromboplastin Time 29.6 sec (22.64-33.71); Prothrombin Time 10.9 sec (9.37-12.3)
[2017-11-24 07:20] LABS: Albumin 1.8 g/dL (3.4-5.0); BUN/Creatinine Ratio 13.8; Bilirubin, Total 0.4 mg/dL (0.2-1.0); Calcium 7.9 mg/dL (8.5-10.1); Potassium 4.4 mmol/L (3.5-5.1); Total Protein 5.5 g/dL (6.4-8.2)
[2017-11-24 07:25] LABS: Basophils # (auto) 0 uL; Basophils % (auto) 0.2 % (0.0-2.0); Eosinophils # (auto) 0.5 uL; Eosinophils % (auto) 4.4 % (0.0-7.0); Hematocrit 31.9 % (41.0-53.0); Hemoglobin 10.6 g/dL (13.5-17.5); Lymphocytes # (auto) 1.9 uL; Lymphocytes % (auto) 17.7 % (10.0-50.0); Mean Corpuscular Hgb Conc. 33.1 g/dL (32.0-36.0); Mean Corpuscular Volume 96.6 fL (80.0-100.0); Monocytes # (auto) 0.9 uL; Monocytes % (auto) 8.1 % (0.0-12.0); Neutrophils # (auto) 7.5 uL; Neutrophils % (auto) 69.6 % (37.0-80.0); Nucleated Red Blood Cells % 1.1 %; Platelet Count (auto) 255 10^3/uL (140-450); Red Cell Distribution Width 15.4 % (11.8-14.3); White Blood Cell 10.8 10^3/uL (4.4-10.8)
[2017-11-24] MEDS: D5W 5% 1,000 ML IV SCH ×2 (07:32→11:30)
[2017-11-24] MEDS ORDERED: SODIUM CHLORIDE LOCK 10 ML ONE (08:05)
[2017-11-24] MEDS ORDERED: LIDOCAINE VISCOUS 2% 15ML UD ONE (08:05)
[2017-11-24] MEDS ORDERED: fentaNYL CITRATE 100 MCG/2 ML VL ONE (08:06)
[2017-11-24] MEDS ORDERED: diphenhdrAMINE HCL 50 MG/1 ML VL ONE (08:06)
[2017-11-24] MEDS ORDERED: MIDAZOLAM HCL 5 MG/ML-1ML VIAL ONE (08:06)
[2017-11-24 09:00] VITALS: BP 128/44
[2017-11-24] MEDS: LISINOPRIL 10 MG TAB PO SCH (10:00)
[2017-11-24] MEDS ORDERED: PANT40TA2 PO (12:36)
[2017-11-24] MEDS: PANTOPRAZOLE 40 MG/10 ML VIAL IV SCH (12:40)
[2017-11-24] MEDS ORDERED: METO25TA3 PO (12:42)
[2017-11-24] MEDS ORDERED: PANTOPRAZOLE 40 MG TAB PO ONE (12:45)
[2017-11-24] MEDS ORDERED: METOPROLOL SUCCINATE XL 50 MG TAB PO ONE (12:45)
[2017-11-24 13:00] VITALS: BP 124/58
[2017-11-25] MEDS ORDERED: METOPROLOL SUCCINATE XL 50 MG TAB PO SCH (10:00)
[2017-12-26] MEDS ORDERED: UMEC1AER IN (11:39)
== END 2017-11-24 16:30 | disposition home health service (06) | DRG 377 ==
LOC: EDBD 08:53 → ER 08:53 → TELE 08:54 → TELE-EAST 23:16
PROVIDERS: ADMIT Internal Medicine; ATTEND Internal Medicine
PROC: 0DB68ZX Excision of Stomach, Via Natural or Artificial Opening Endoscopic, Diagnostic (ICD-10-PCS; principal; 2017-11-21 12:50)
PROC: 0DJD8ZZ Inspection of Lower Intestinal Tract, Via Natural or Artificial Opening Endoscopic (ICD-10-PCS; 2017-11-21 12:50)
PROC: 0DJ08ZZ Inspection of Upper Intestinal Tract, Via Natural or Artificial Opening Endoscopic (ICD-10-PCS; 2017-11-24)
DX: K29.71 Gastritis, unspecified, with bleeding (principal); N17.0 Acute kidney failure with tubular necrosis; E43 Unspecified severe protein-calorie malnutrition; G93.41 Metabolic encephalopathy; E87.0 Hyperosmolality and hypernatremia; E87.5 Hyperkalemia; I13.0 Hypertensive heart and chronic kidney disease with heart failure and stage 1 through stage 4 chronic kidney disease, or unspecified chronic kidney disease; I50.32 Chronic diastolic (congestive) heart failure; E86.0 Dehydration; I69.359 Hemiplegia and hemiparesis following cerebral infarction affecting unspecified side; N18.4 Chronic kidney disease, stage 4 (severe); J44.9 Chronic obstructive pulmonary disease, unspecified; E16.2 Hypoglycemia, unspecified; R91.1 Solitary pulmonary nodule; K63.89 Other specified diseases of intestine; K31.89 Other diseases of stomach and duodenum; F17.210 Nicotine dependence, cigarettes, uncomplicated; I25.10 Atherosclerotic heart disease of native coronary artery without angina pectoris; K21.9 Gastro-esophageal reflux disease without esophagitis; K57.30 Diverticulosis of large intestine without perforation or abscess without bleeding; K64.8 Other hemorrhoids; N18.3 Chronic kidney disease, stage 3 (moderate); Z87.11 Personal history of peptic ulcer disease; I69.320 Aphasia following cerebral infarction; Z68.21 Body mass index [BMI] 21.0-21.9, adult; Z93.1 Gastrostomy status; Z88.0 Allergy status to penicillin; Z79.899 Other long term (current) drug therapy; Z71.3 Dietary counseling and surveillance
CPT/HCPCS: 36415; 43235; 43239; 45378; 71045; 71250; 80053; 82962; 83735; 84132; 85014; 85018; 85025; 85610; 85730; 87040; 87081; 92610; 93306; 94640; 94761; 96361; 96365; 96375; C9113; J0610; J2250; J3490; J7042

== ENCOUNTER 2017-12-22 07:02 | Inpatient (IN) | payer MEDICARE, MEDICAID ==
[~2017-12-22] VITALS: Ht 182.9 cm; Wt 48.2 kg
[~2017-12-22 07:02] MED LIST changes: +FOLI1TAB6 PO; +METO25TA3 PO; -OME20GT PO; +PANT40TA2 PO
[2017-12-22] MEDS ORDERED: FUROSEMIDE 40 MG/4 ML VIAL IV ONE (07:30)
[2017-12-22] MEDS ORDERED: methylPREDNISolone SOD SUCC 125 MG/2 ML VL IV ONE (07:30)
[2017-12-22] MEDS ORDERED: cloNIDine HCL 0.1 MG TAB PO ONE (08:30)
[2017-12-22 08:31] LABS: Basophils # (auto) 0.4 uL; Basophils % (auto) 2.5 % (0.0-2.0); Eosinophils # (auto) 0.1 uL; Eosinophils % (auto) 0.6 % (0.0-7.0); Hematocrit 37.1 % (41.0-53.0); Hemoglobin 11.6 g/dL (13.5-17.5); Lymphocytes # (auto) 1.3 uL; Lymphocytes % (auto) 8.4 % (10.0-50.0); Mean Corpuscular Hemoglobin 28.1 pg (28.0-32.0); Mean Corpuscular Hgb Conc. 31.2 g/dL (32.0-36.0); Mean Corpuscular Volume 90.1 fL (80.0-100.0); Monocytes # (auto) 0.9 uL; Neutrophils # (auto) 12.6 uL; Neutrophils % (auto) 82.5 % (37.0-80.0); Nucleated Red Blood Cells % 0.2 %; Platelet Count (auto) 336 10^3/uL (140-450); Red Blood Cells 4.12 10^6/uL (4.5-5.90); Red Cell Distribution Width 16.2 % (11.8-14.3); White Blood Cell 15.3 10^3/uL (4.4-10.8)
[2017-12-22 08:49] LABS: Lactic Acid w/Reflex 2.8 mmol/L (0.4-2.0)
[2017-12-22 08:53] LABS: Alanine Aminotransferase 17 U/L (16-61); Albumin 3.3 g/dL (3.4-5.0); Alkaline Phosphatase 69 U/L (45-117); Anion Gap 10 (5-15); Aspartate Aminotransferase 21 U/L (15-37); BUN/Creatinine Ratio 11.3; Bilirubin, Total 0.6 mg/dL (0.2-1.0); Blood Urea Nitrogen 22 mg/dL (7-18); Calcium 8.7 mg/dL (8.5-10.1); Carbon Dioxide 25 mmol/L (21-32); Chloride 108 mmol/L (98-107); GFR African American 44 mL/min; GFR Non-African American 36 mL/min; Glucose 97 mg/dL (74-106); Magnesium 2.3 mg/dL (1.6-2.6); Potassium 3.5 mmol/L (3.5-5.1); Sodium 143 mmol/L (136-145); Total Protein 7.6 g/dL (6.4-8.2)
[2017-12-22] MEDS ORDERED: NITROGLYCERIN 0.4 MG SL TAB SL PRN (09:15)
[2017-12-22] MEDS ORDERED: LORazepam 0.5 MG TAB PO PRN (09:15)
[2017-12-22] MEDS ORDERED: ALBUTEROL SULF 2.5 MG/0.5ML(0.5%) NEB SOLN NEB PRN (09:15)
[2017-12-22] MEDS ORDERED: LACTULOSE 20Gm/30ML SOLN PO PRN (09:15)
[2017-12-22] MEDS ORDERED: MORPHINE SULFATE 4 MG/ML SYR/VIAL IV PRN ×2 (09:15)
[2017-12-22] MEDS ORDERED: ACETAMINOPHEN 500 MG TAB PO PRN (09:15)
[2017-12-22] MEDS ORDERED: PROMETHAZINE HCL 25 MG/ML 1ML IV PRN (09:15)
[2017-12-22] MEDS ORDERED: TEMAZEPAM 15 MG CAP PO PRN (09:15)
[2017-12-22] MEDS ORDERED: HYDROcodone-ACET 5/325MG TAB PO PRN (09:15)
[2017-12-22 09:49] VITALS: BP 186/93
[2017-12-22] MEDS: LEVOFLOXACIN 500MG 100 ML IV SCH (10:00)
[2017-12-22] MEDS ORDERED: PATIENTS OWN MEDICATION (Metoprolol Succinate (Toprol Xl) 1 TAB) PO SCH (10:00)
[2017-12-22] MEDS ORDERED: PATIENTS OWN MEDICATION (Folic Acid 1 MG) PO SCH (10:00)
[2017-12-22] MEDS: IPRATROPIUM BROM 0.5 MG/2.5ML INH SOL NEB SCH ×2 (11:24→18:00)
[2017-12-22] MEDS: ALBUTEROL SULF 2.5 MG/0.5ML(0.5%) NEB SOLN NEB SCH ×2 (11:24→18:00)
[2017-12-22] MEDS: FUROSEMIDE 40 MG/4 ML VIAL IV SCH (12:46)
[2017-12-22] MEDS: METOPROLOL SUCCINATE XL 50 MG TAB PO SCH (12:50)
[2017-12-22] MEDS: POTASSIUM CHL 20 Meq TABLET PO SCH (13:00)
[2017-12-22] MEDS: FOLIC ACID 1 MG TAB PO SCH (13:00)
[2017-12-22] MEDS: LISINOPRIL 10 MG TAB PO SCH (13:00)
[2017-12-22] MEDS: ENOXAPARIN SOD 40 MG/0.4 ML SYRINGE SC SCH (13:01)
[2017-12-22] MEDS: PANTOPRAZOLE 40 MG TAB PO SCH ×2 (13:01→21:30)
[2017-12-22 16:12] VITALS: BP 139/72
[2017-12-22 22:00] VITALS: BP 131/79
[2017-12-22] MEDS ORDERED: ATORVASTATIN CALCIUM LIPITOR PO SCH (22:00)
[2017-12-22] MEDS ORDERED: ZOLPIDEM TARTRATE 10 MG PO SCH (22:00)
[2017-12-22] MEDS: ATORVASTATIN 20 MG TAB PO SCH (22:02)
[2017-12-22] MEDS: ZOLPIDEM TARTRATE 5 MG TAB PO PRN (22:39)
[2017-12-23 05:05] VITALS: BP 133/79
[2017-12-23] MEDS: IPRATROPIUM BROM 0.5 MG/2.5ML INH SOL NEB SCH ×4 (06:16→18:00)
[2017-12-23] MEDS: ALBUTEROL SULF 2.5 MG/0.5ML(0.5%) NEB SOLN NEB SCH ×4 (06:17→18:00)
[2017-12-23 06:45] LABS: Basophils # (auto) 0.1 uL; Basophils % (auto) 0.3 % (0.0-2.0); Eosinophils # (auto) 0 uL; Hematocrit 30.2 % (41.0-53.0); Hemoglobin 9.8 g/dL (13.5-17.5); Lymphocytes # (auto) 2.9 uL; Lymphocytes % (auto) 14.6 % (10.0-50.0); Mean Corpuscular Hemoglobin 28.4 pg (28.0-32.0); Mean Corpuscular Hgb Conc. 32.3 g/dL (32.0-36.0); Monocytes # (auto) 1.1 uL; Monocytes % (auto) 5.4 % (0.0-12.0); Neutrophils # (auto) 16.1 uL; Neutrophils % (auto) 79.7 % (37.0-80.0); Nucleated Red Blood Cells % 0.1 %; Platelet Count (auto) 278 10^3/uL (140-450); Red Blood Cells 3.43 10^6/uL (4.5-5.90); Red Cell Distribution Width 16.1 % (11.8-14.3); White Blood Cell 20.2 10^3/uL (4.4-10.8)
[2017-12-23 07:12] LABS: Albumin 2.8 g/dL (3.4-5.0); Bilirubin, Total 0.5 mg/dL (0.2-1.0); Calcium 8.3 mg/dL (8.5-10.1); Potassium 3.2 mmol/L (3.5-5.1); Total Protein 6.4 g/dL (6.4-8.2)
[2017-12-23 08:00] VITALS: BP 148/95
[2017-12-23] MEDS: LEVOFLOXACIN 500MG 100 ML IV SCH (10:01)
[2017-12-23] MEDS: FUROSEMIDE 40 MG/4 ML VIAL IV SCH (10:01)
[2017-12-23] MEDS: POTASSIUM CHL 20 Meq TABLET PO SCH (10:02)
[2017-12-23] MEDS: FOLIC ACID 1 MG TAB PO SCH (10:02)
[2017-12-23] MEDS: PANTOPRAZOLE 40 MG TAB PO SCH ×2 (10:02→21:31)
[2017-12-23] MEDS: METOPROLOL SUCCINATE XL 50 MG TAB PO SCH (10:02)
[2017-12-23] MEDS: ENOXAPARIN SOD 40 MG/0.4 ML SYRINGE SC SCH (10:03)
[2017-12-23] MEDS: LISINOPRIL 10 MG TAB PO SCH (10:03)
[2017-12-23 12:00] VITALS: BP 149/90
[2017-12-23 17:30] VITALS: BP 134/80
[2017-12-23] MEDS ORDERED: PNEUMOCOCCAL VACC POLYS 25 MCG/0.5 ML VIAL IM SCH (19:45)
[2017-12-23] MEDS ORDERED: PNEUMOCOCCAL VACC POLYS 25 MCG/0.5 ML VIAL IM ONE (20:00)
[2017-12-23] MEDS: CLINDAMYCIN 300MG IV 50 ML IV SCH (21:30)
[2017-12-23] MEDS: ATORVASTATIN 20 MG TAB PO SCH (21:30)
[2017-12-23] MEDS: ZOLPIDEM TARTRATE 5 MG TAB PO PRN (21:31)
[2017-12-23 21:41] LABS: Basophils # (auto) 0 uL; Basophils % (auto) 0.3 % (0.0-2.0); Eosinophils # (auto) 0.2 uL; Eosinophils % (auto) 1.1 % (0.0-7.0); Hematocrit 32.8 % (41.0-53.0); Hemoglobin 10.5 g/dL (13.5-17.5); Lymphocytes # (auto) 4.5 uL; Lymphocytes % (auto) 27.3 % (10.0-50.0); Mean Corpuscular Hemoglobin 28.3 pg (28.0-32.0); Mean Corpuscular Volume 88.3 fL (80.0-100.0); Monocytes # (auto) 1.1 uL; Monocytes % (auto) 6.6 % (0.0-12.0); Neutrophils # (auto) 10.6 uL; Neutrophils % (auto) 64.7 % (37.0-80.0); Nucleated Red Blood Cells % 0.3 %; Platelet Count (auto) 299 10^3/uL (140-450); Red Blood Cells 3.71 10^6/uL (4.5-5.90); Red Cell Distribution Width 16.4 % (11.8-14.3); White Blood Cell 16.3 10^3/uL (4.4-10.8)
[2017-12-23 22:00] VITALS: BP 124/76
[2017-12-24] MEDS: CLINDAMYCIN 300MG IV 50 ML IV SCH ×3 (05:09→21:12)
[2017-12-24 06:00] VITALS: BP 132/79
[2017-12-24] MEDS: ALBUTEROL SULF 2.5 MG/0.5ML(0.5%) NEB SOLN NEB SCH ×4 (06:47→18:00)
[2017-12-24] MEDS: IPRATROPIUM BROM 0.5 MG/2.5ML INH SOL NEB SCH ×4 (06:47→18:00)
[2017-12-24 06:52] LABS: Basophils # (auto) 0.4 uL; Basophils % (auto) 2.7 % (0.0-2.0); Eosinophils # (auto) 0.2 uL; Eosinophils % (auto) 1.5 % (0.0-7.0); Hematocrit 33.4 % (41.0-53.0); Hemoglobin 10.5 g/dL (13.5-17.5); Lymphocytes % (auto) 30.2 % (10.0-50.0); Mean Corpuscular Hemoglobin 28.1 pg (28.0-32.0); Mean Corpuscular Hgb Conc. 31.6 g/dL (32.0-36.0); Mean Corpuscular Volume 89.1 fL (80.0-100.0); Monocytes # (auto) 0.8 uL; Monocytes % (auto) 5.6 % (0.0-12.0); Nucleated Red Blood Cells % 0.4 %; Platelet Count (auto) 298 10^3/uL (140-450); Red Blood Cells 3.75 10^6/uL (4.5-5.90); Red Cell Distribution Width 16.3 % (11.8-14.3); White Blood Cell 13.4 10^3/uL (4.4-10.8)
[2017-12-24 06:58] LABS: BUN/Creatinine Ratio 12.6; Calcium 8.3 mg/dL (8.5-10.1); Potassium 3.3 mmol/L (3.5-5.1)
[2017-12-24 08:52] VITALS: BP 122/71
[2017-12-24 12:00] VITALS: BP 119/81
[2017-12-24] MEDS: FUROSEMIDE 40 MG/4 ML VIAL IV SCH (12:27)
[2017-12-24] MEDS: METOPROLOL SUCCINATE XL 50 MG TAB PO SCH (12:28)
[2017-12-24] MEDS: LEVOFLOXACIN 500MG 100 ML IV SCH (12:28)
[2017-12-24] MEDS: POTASSIUM CHL 20 Meq TABLET PO SCH (12:28)
[2017-12-24] MEDS: PANTOPRAZOLE 40 MG TAB PO SCH ×2 (12:28→21:07)
[2017-12-24] MEDS: FOLIC ACID 1 MG TAB PO SCH (12:28)
[2017-12-24] MEDS: ENOXAPARIN SOD 40 MG/0.4 ML SYRINGE SC SCH (12:29)
[2017-12-24] MEDS: LISINOPRIL 10 MG TAB PO SCH (12:29)
[2017-12-24 16:56] VITALS: BP 116/71
[2017-12-24] MEDS ORDERED: POTASSIUM CHL 20MEQ/100ML 100 ML IV ONE (17:45)
[2017-12-24] MEDS ORDERED: methylPREDNISolone SOD SUCC 40 MG/ML VL IV ONE (20:45)
[2017-12-24] MEDS: ATORVASTATIN 20 MG TAB PO SCH (21:07)
[2017-12-24] MEDS: ZOLPIDEM TARTRATE 5 MG TAB PO PRN (21:07)
[2017-12-24] MEDS: methylPREDNISolone SOD SUCC 40 MG/ML VL IV SCH (21:10)
[2017-12-24 23:37] VITALS: BP 140/74
[2017-12-25 05:27] VITALS: BP 147/82
[2017-12-25] MEDS: CLINDAMYCIN 300MG IV 50 ML IV SCH ×2 (05:47→13:15)
[2017-12-25] MEDS: methylPREDNISolone SOD SUCC 40 MG/ML VL IV SCH (05:48)
[2017-12-25 06:52] LABS: Basophils # (auto) 0.1 uL; Eosinophils # (auto) 0 uL; Hematocrit 35.5 % (41.0-53.0); Hemoglobin 11.3 g/dL (13.5-17.5); Lymphocytes # (auto) 1.7 uL; Lymphocytes % (auto) 15.2 % (10.0-50.0); Mean Corpuscular Hemoglobin 28.2 pg (28.0-32.0); Mean Corpuscular Volume 88.2 fL (80.0-100.0); Monocytes # (auto) 0.1 uL; Monocytes % (auto) 0.6 % (0.0-12.0); Neutrophils # (auto) 9.4 uL; Neutrophils % (auto) 83.2 % (37.0-80.0); Nucleated Red Blood Cells % 0.3 %; Platelet Count (auto) 332 10^3/uL (140-450); Red Blood Cells 4.02 10^6/uL (4.5-5.90); Red Cell Distribution Width 16.5 % (11.8-14.3); White Blood Cell 11.3 10^3/uL (4.4-10.8)
[2017-12-25] MEDS: IPRATROPIUM BROM 0.5 MG/2.5ML INH SOL NEB SCH ×4 (07:07→20:01)
[2017-12-25] MEDS: ALBUTEROL SULF 2.5 MG/0.5ML(0.5%) NEB SOLN NEB SCH ×4 (07:08→20:01)
[2017-12-25 09:00] VITALS: BP 152/84
[2017-12-25] MEDS: FUROSEMIDE 40 MG/4 ML VIAL IV SCH (09:34)
[2017-12-25] MEDS: LEVOFLOXACIN 500MG 100 ML IV SCH (09:34)
[2017-12-25] MEDS: PANTOPRAZOLE 40 MG TAB PO SCH ×2 (09:35→22:01)
[2017-12-25] MEDS: FOLIC ACID 1 MG TAB PO SCH (09:35)
[2017-12-25] MEDS: METOPROLOL SUCCINATE XL 50 MG TAB PO SCH (09:36)
[2017-12-25] MEDS: LISINOPRIL 10 MG TAB PO SCH (09:37)
[2017-12-25] MEDS: ENOXAPARIN SOD 40 MG/0.4 ML SYRINGE SC SCH (09:37)
[2017-12-25] MEDS: POTASSIUM CHL 20 Meq TABLET PO SCH (10:00)
[2017-12-25 10:57] VITALS: BP 152/84
[2017-12-25 13:00] VITALS: BP 131/92
[2017-12-25] MEDS: FLORASTOR (S. BOULARDII) 250 MG CAP PO SCH (14:57)
[2017-12-25 17:00] VITALS: BP 160/106
[2017-12-25] MEDS ORDERED: methylPREDNISolone SOD SUCC 40 MG/ML VL IV SCH (22:00)
[2017-12-25] MEDS: ATORVASTATIN 20 MG TAB PO SCH (22:01)
[2017-12-25] MEDS: ZOLPIDEM TARTRATE 5 MG TAB PO PRN (22:27)
[2017-12-25 22:43] VITALS: BP 158/98
[2017-12-26] MEDS: ALBUTEROL SULF 2.5 MG/0.5ML(0.5%) NEB SOLN NEB SCH ×3 (01:21→11:24)
[2017-12-26] MEDS: IPRATROPIUM BROM 0.5 MG/2.5ML INH SOL NEB SCH ×3 (01:21→11:24)
[2017-12-26 05:20] VITALS: BP 142/88
[2017-12-26 06:05] LABS: Basophils # (auto) 0.2 uL; Basophils % (auto) 1.5 % (0.0-2.0); Eosinophils # (auto) 0 uL; Hematocrit 34.4 % (41.0-53.0); Hemoglobin 11.1 g/dL (13.5-17.5); Lymphocytes # (auto) 2.3 uL; Lymphocytes % (auto) 15.3 % (10.0-50.0); Mean Corpuscular Hemoglobin 28.1 pg (28.0-32.0); Mean Corpuscular Hgb Conc. 32.2 g/dL (32.0-36.0); Mean Corpuscular Volume 87.3 fL (80.0-100.0); Monocytes # (auto) 0.5 uL; Monocytes % (auto) 3.7 % (0.0-12.0); Neutrophils # (auto) 11.9 uL; Neutrophils % (auto) 79.5 % (37.0-80.0); Nucleated Red Blood Cells % 0.1 %; Platelet Count (auto) 343 10^3/uL (140-450); Red Blood Cells 3.94 10^6/uL (4.5-5.90)
[2017-12-26 06:22] LABS: BUN/Creatinine Ratio 18.8; Calcium 9.2 mg/dL (8.5-10.1); Magnesium 2.1 mg/dL (1.6-2.6); Potassium 4.4 mmol/L (3.5-5.1)
[2017-12-26 08:44] VITALS: BP 176/106
[2017-12-26] MEDS: PANTOPRAZOLE 40 MG TAB PO SCH ×3 (10:00→10:36)
[2017-12-26] MEDS ORDERED: predniSONE 20 MG TAB PO SCH (10:00)
[2017-12-26] MEDS: FLORASTOR (S. BOULARDII) 250 MG CAP PO SCH (10:12)
[2017-12-26] MEDS: ENOXAPARIN SOD 40 MG/0.4 ML SYRINGE SC SCH (10:12)
[2017-12-26] MEDS: FOLIC ACID 1 MG TAB PO SCH (10:13)
[2017-12-26] MEDS: METOPROLOL SUCCINATE XL 50 MG TAB PO SCH (10:14)
[2017-12-26] MEDS: LISINOPRIL 10 MG TAB PO SCH (10:15)
[2017-12-26] MEDS ORDERED: UMEC1AER IN (11:39)
[2017-12-26 12:31] VITALS: BP 152/76
[2017-12-26 13:59] VITALS: BP 152/76
[2017-12-26] MEDS ORDERED: BOOST PLUS 8 ounce PO SCH (18:00)
== END 2017-12-26 15:40 | disposition home health service (06) | DRG 177 ==
LOC: ER 07:02 → EDBD 07:02 → TELE 07:03 → TELE-WESTW 15:23
PROVIDERS: ADMIT Internal Medicine; ATTEND Internal Medicine
DX: J69.0 Pneumonitis due to inhalation of food and vomit (principal); E43 Unspecified severe protein-calorie malnutrition; J96.01 Acute respiratory failure with hypoxia; I50.33 Acute on chronic diastolic (congestive) heart failure; I13.0 Hypertensive heart and chronic kidney disease with heart failure and stage 1 through stage 4 chronic kidney disease, or unspecified chronic kidney disease; J44.1 Chronic obstructive pulmonary disease with (acute) exacerbation; I69.359 Hemiplegia and hemiparesis following cerebral infarction affecting unspecified side; Z68.1 Body mass index [BMI] 19.9 or less, adult; N18.3 Chronic kidney disease, stage 3 (moderate); F17.210 Nicotine dependence, cigarettes, uncomplicated; K21.9 Gastro-esophageal reflux disease without esophagitis; T38.0X5A Adverse effect of glucocorticoids and synthetic analogues, initial encounter; J92.9 Pleural plaque without asbestos; E04.1 Nontoxic single thyroid nodule; K57.90 Diverticulosis of intestine, part unspecified, without perforation or abscess without bleeding; Z82.0 Family history of epilepsy and other diseases of the nervous system; Z82.3 Family history of stroke; Z82.49 Family history of ischemic heart disease and other diseases of the circulatory system; Z87.11 Personal history of peptic ulcer disease; Z93.1 Gastrostomy status; Z83.3 Family history of diabetes mellitus; Y92.89 Other specified places as the place of occurrence of the external cause; Z23 Encounter for immunization; Z88.0 Allergy status to penicillin
CPT/HCPCS: 36415; 36600; 71045; 76536; 80048; 80053; 80061; 82550; 82805; 83605; 83735; 83880; 84132; 84443; 84484; 85025; 87040; 87081; 87804; 92610; 93005; 94640; 94761; 96372; 96375; 97163; J1956; J3480; J3490

== ENCOUNTER 2018-01-30 05:48 | Emergency (ER) | payer MEDICARE, MEDICAID ==
[~2018-01-30] VITALS: Ht 172.7 cm; Wt 54.4 kg
[~2018-01-30 05:48] MED LIST changes: -Atorvastatin Calcium PO; +UMEC1AER IN
[2018-01-30] MEDS ORDERED: LABETALOL HCL 5 MG/ML ML 20ML VIAL IV ONE (07:00)
[2018-01-30] MEDS ORDERED: SODIUM CHLORIDE 0.9% 1,000 ML IV ONE (08:37)
[2018-01-30 09:39] LABS: Basophils # (auto) 0.1 uL; Basophils % (auto) 0.6 % (0.0-2.0); Eosinophils # (auto) 0.1 uL; Eosinophils % (auto) 0.5 % (0.0-7.0); Hematocrit 39.6 % (41.0-53.0); Hemoglobin 11.9 g/dL (13.5-17.5); Lymphocytes # (auto) 3.3 uL; Lymphocytes % (auto) 32.4 % (10.0-50.0); Mean Corpuscular Hemoglobin 25.2 pg (28.0-32.0); Mean Corpuscular Hgb Conc. 30.2 g/dL (32.0-36.0); Mean Corpuscular Volume 83.6 fL (80.0-100.0); Monocytes # (auto) 0.6 uL; Neutrophils # (auto) 6.2 uL; Neutrophils % (auto) 60.5 % (37.0-80.0); Nucleated Red Blood Cells % 0.3 %; Platelet Count (auto) 394 10^3/uL (140-450); Red Blood Cells 4.74 10^6/uL (4.5-5.90); Red Cell Distribution Width 19.2 % (11.8-14.3); White Blood Cell 10.2 10^3/uL (4.4-10.8)
[2018-01-30 09:57] LABS: Alanine Aminotransferase 17 U/L (16-61); Albumin 2.9 g/dL (3.4-5.0); Anion Gap 11 (5-15); Aspartate Aminotransferase 20 U/L (15-37); BUN/Creatinine Ratio 10.3; Blood Urea Nitrogen 22 mg/dL (7-18); Calcium 8.9 mg/dL (8.5-10.1); Carbon Dioxide 23 mmol/L (21-32); Chloride 111 mmol/L (98-107); GFR African American 40 mL/min; GFR Non-African American 33 mL/min; Glucose 72 mg/dL (74-106); Potassium 3.7 mmol/L (3.5-5.1); Sodium 145 mmol/L (136-145)
[2018-01-30 10:06] LABS: Alkaline Phosphatase 55 U/L (45-117); Bilirubin, Total 0.4 mg/dL (0.2-1.0); Total Protein 6.8 g/dL (6.4-8.2)
[2018-01-30 10:15] VITALS: BP 175/108
[2018-01-30] MEDS ORDERED: hydrALAZINE HCL 20 MG/ML VL IV ONE (10:30)
[2018-03-08] MEDS ORDERED: METO25TA5 PO (17:44)
== END 2018-01-30 12:10 | disposition home or self-care (01) ==
LOC: EDBD 05:48 → ER 05:51
DX: G45.9 Transient cerebral ischemic attack, unspecified (principal); I12.9 Hypertensive chronic kidney disease with stage 1 through stage 4 chronic kidney disease, or unspecified chronic kidney disease; N18.9 Chronic kidney disease, unspecified; J44.9 Chronic obstructive pulmonary disease, unspecified; F17.210 Nicotine dependence, cigarettes, uncomplicated; Z88.0 Allergy status to penicillin
CPT/HCPCS: 36415; 70450; 80053; 84484; 85025; 93005; 96374; 96375; 99285; J0360; J7030

== ENCOUNTER 2018-02-01 08:11 | Emergency (ER) | payer MEDICARE, MEDICAID ==
[~2018-02-01] VITALS: Ht 175.3 cm; Wt 56.7 kg
[2018-02-01 08:51] LABS: Basophils # (auto) 0.1 uL; Eosinophils # (auto) 0.2 uL; Lymphocytes # (auto) 2.6 uL; Mean Corpuscular Hemoglobin 25.4 pg (28.0-32.0); Monocytes # (auto) 0.7 uL
[2018-02-01 08:54] LABS: Basophils % (auto) 0.7 % (0.0-2.0); Hematocrit 44.3 % (41.0-53.0); Hemoglobin 13.6 g/dL (13.5-17.5); Mean Corpuscular Hgb Conc. 30.7 g/dL (32.0-36.0); Mean Corpuscular Volume 82.6 fL (80.0-100.0); Monocytes % (auto) 9.5 % (0.0-12.0); Neutrophils # (auto) 4.1 uL; Neutrophils % (auto) 52.8 % (37.0-80.0); Nucleated Red Blood Cells % 0.8 %; Platelet Count (auto) 472 10^3/uL (140-450); Red Blood Cells 5.37 10^6/uL (4.5-5.90); Red Cell Distribution Width 19.5 % (11.8-14.3); White Blood Cell 7.7 10^3/uL (4.4-10.8)
[2018-02-01 09:10] LABS: Alanine Aminotransferase 19 U/L (16-61); Albumin 3.2 g/dL (3.4-5.0); Alkaline Phosphatase 61 U/L (45-117); Anion Gap 9 (5-15); Aspartate Aminotransferase 21 U/L (15-37); BUN/Creatinine Ratio 8.6; Bilirubin, Total 0.5 mg/dL (0.2-1.0); Blood Urea Nitrogen 20 mg/dL (7-18); Calcium 9.3 mg/dL (8.5-10.1); Carbon Dioxide 21 mmol/L (21-32); Chloride 111 mmol/L (98-107); GFR African American 36 mL/min; GFR Non-African American 30 mL/min; Glucose 82 mg/dL (74-106); Magnesium 2.3 mg/dL (1.6-2.6); Potassium 4.2 mmol/L (3.5-5.1); Sodium 141 mmol/L (136-145); Total Protein 7.6 g/dL (6.4-8.2)
[2018-02-01 10:30] VITALS: BP 137/96
[2018-03-08] MEDS ORDERED: METO25TA5 PO (17:44)
== END 2018-02-01 14:17 | disposition home or self-care (01) ==
LOC: EDBD 08:11 → ER 08:11
DX: I12.9 Hypertensive chronic kidney disease with stage 1 through stage 4 chronic kidney disease, or unspecified chronic kidney disease (principal); N18.9 Chronic kidney disease, unspecified; J45.909 Unspecified asthma, uncomplicated; J44.9 Chronic obstructive pulmonary disease, unspecified; K21.9 Gastro-esophageal reflux disease without esophagitis; F17.210 Nicotine dependence, cigarettes, uncomplicated; Z88.0 Allergy status to penicillin; Z79.899 Other long term (current) drug therapy; Z86.73 Personal history of transient ischemic attack (TIA), and cerebral infarction without residual deficits; Z87.11 Personal history of peptic ulcer disease
CPT/HCPCS: 36415; 71045; 80053; 83735; 84484; 85025; 93005

== ENCOUNTER 2018-11-02 16:24 | Inpatient (IN) | payer MEDICARE, MEDICAID ==
[~2018-11-02] VITALS: Ht 177.8 cm; Wt 54.6 kg
[~2018-11-02 16:24] MED LIST changes: +AML5T PO; +CLO01T PO; +FOLITAB22 PEG; -LISI10TA6 PO; +MET50T PEG; -METO25TA3 PO; +PANT40TA2 PEG; -PANT40TA2 PO; +SACC250C PO; -UMEC1AER IN; +ZOLP10TA6 PEG; -ZOLP10TA6 PO
[2018-11-02] MEDS ORDERED: IPRATROPIUM BROM 0.5 MG/2.5ML INH SOL HHN ONE (17:00)
[2018-11-02] MEDS ORDERED: methylPREDNISolone SOD SUCC 125 MG/2 ML VL IV ONE (17:00)
[2018-11-02] MEDS ORDERED: ALBUTEROL SULF 2.5 MG/0.5ML(0.5%) NEB SOLN HHN ONE (17:00)
[2018-11-02 19:19] LABS: Chloride 109 mmol/L (98-107); Potassium 4.7 mmol/L (3.5-5.1); Sodium 141 mmol/L (136-145)
[2018-11-02 19:21] LABS: Basophils # (auto) 0.1 uL; Basophils % (auto) 1.8 % (0.0-2.0); Eosinophils # (auto) 0.4 uL; Eosinophils % (auto) 5.7 % (0.0-7.0); Hematocrit 36.5 % (41.0-53.0); Hemoglobin 11.3 g/dL (13.5-17.5); Lymphocytes # (auto) 2.8 uL; Lymphocytes % (auto) 39.6 % (10.0-50.0); Mean Corpuscular Hemoglobin 23.7 pg (28.0-32.0); Mean Corpuscular Hgb Conc. 30.9 g/dL (32.0-36.0); Mean Corpuscular Volume 76.6 fL (80.0-100.0); Monocytes # (auto) 0.6 uL; Monocytes % (auto) 9.2 % (0.0-12.0); Neutrophils # (auto) 3.1 uL; Neutrophils % (auto) 43.7 % (37.0-80.0); Nucleated Red Blood Cells % 0.4 %; Platelet Count (auto) 300 10^3/uL (140-450); Red Blood Cells 4.77 10^6/uL (4.5-5.90); Red Cell Distribution Width 17.7 % (11.8-14.3)
[2018-11-02 19:24] LABS: Albumin 3.3 g/dL (3.4-5.0); Blood Urea Nitrogen 24 mg/dL (7-18); Calcium 8.1 mg/dL (8.5-10.1); Carbon Dioxide 25 mmol/L (21-32); Glucose 75 mg/dL (74-106)
[2018-11-02 19:26] LABS: Alanine Aminotransferase 49 U/L (16-61); Aspartate Aminotransferase 114 U/L (15-37); BUN/Creatinine Ratio 11.7; GFR African American 41 mL/min; GFR Non-African American 34 mL/min
[2018-11-02 19:31] LABS: Alkaline Phosphatase 93 U/L (45-117); Bilirubin, Total 0.3 mg/dL (0.2-1.0); Total Protein 7.9 g/dL (6.4-8.2)
[2018-11-02 19:37] LABS: Anion Gap 7 (5-15)
[2018-11-02] MEDS ORDERED: LEVOFLOXACIN 500MG 100 ML IV ONE (20:00)
--- NOTE | 2018-11-02 20:10 | NUR ---
M/S/T admit from [facility] admitted to [facility] UNIT. Patient oriented to RANDY SINGER, primary RN, unit, room, bed, and unit policies regarding patient care and visiting hours. Patient placed on bedside 2l oxygen, weighed by bedscale and encouraged to call if they need something. All questions and concerns addressed, patient verbalized understanding
[2018-11-02] MEDS ORDERED: HYDROcodone-ACET 5/325MG TAB PO PRN (21:15)
[2018-11-02] MEDS ORDERED: ACETAMINOPHEN 325 MG TAB PO PRN (21:15)
[2018-11-02] MEDS ORDERED: ONDANSETRON HCL 4 MG/2 ML VIAL IV PRN (21:15)
[2018-11-02 22:33] VITALS: BP 166/99
--- NOTE | 2018-11-02 22:45 | NUR ---
Patient cannot provide home medication information at this time. Request to contact with his , Eveline Dexter_[phone], tomorrow morning .
[2018-11-02 23:00] VITALS: BP 166/99
[2018-11-02] MEDS: METOPROLOL TARTRATE 25 MG TAB PO SCH (23:05)
[2018-11-03 05:47] VITALS: BP 156/103
[2018-11-03 06:37] LABS: Hematocrit 39.1 % (41.0-53.0); Hemoglobin 12.1 g/dL (13.5-17.5); Mean Corpuscular Hemoglobin 23.8 pg (28.0-32.0); Mean Corpuscular Hgb Conc. 30.9 g/dL (32.0-36.0); Platelet Count (auto) 293 10^3/uL (140-450); Red Blood Cells 5.07 10^6/uL (4.5-5.90); Red Cell Distribution Width 17.9 % (11.8-14.3); White Blood Cell 3.6 10^3/uL (4.4-10.8)
[2018-11-03 06:40] LABS: Band Neutrophils % (manual) 0; Basophils % (manual) 0 (0.0-2.0); Blast Cells 0; Eosinophils % (manual) 0 (0-7); Metamyelocytes % 0; Myelocytes % 0; Promyelocytes % 0; Reactive Lymphocytes 0
[2018-11-03 06:46] LABS: Albumin 3.5 g/dL (3.4-5.0); BUN/Creatinine Ratio 11.5; Calcium 8.8 mg/dL (8.5-10.1); Potassium 4.2 mmol/L (3.5-5.1)
[2018-11-03 06:48] LABS: Bilirubin, Total 0.4 mg/dL (0.2-1.0); Total Protein 7.6 g/dL (6.4-8.2)
[2018-11-03 07:55] VITALS: BP 158/98
--- NOTE | 2018-11-03 08:14 | NUR ---
RECEIVED REPORT AND ASSUME CARE OF PT. A/OX4. DENIED S/S ACUTE DISTRESS. DENIED SOB/CP/N/V/DIZZINESS.UPDATE PT WITH POC. BED AT LOWEST POSITION. CALL LIGHT AND BELONGINGS WITHIN REACH. WILL CONT TO MONITOR.
--- NOTE | 2018-11-03 08:30 | NUR ---
Spoke with , . Eveline Molina will bring patient's home medications with her this afternoon.
[2018-11-03] MEDS ORDERED: PNEUMOCOCCAL VACC POLYS 25 MCG/0.5 ML VIAL IM ONE (09:00)
[2018-11-03] MEDS: PANTOPRAZOLE 40 MG/10 ML VIAL IV SCH (09:26)
[2018-11-03] MEDS: LEVOFLOXACIN 250MG 50 ML IV SCH (09:26)
[2018-11-03] MEDS: amLODIPine BESYLATE 5 MG TAB PO SCH (09:27)
[2018-11-03] MEDS: FOLIC ACID 1 MG TAB PO SCH (09:27)
[2018-11-03] MEDS: METOPROLOL TARTRATE 25 MG TAB PO SCH ×2 (09:27→22:35)
[2018-11-03 10:37] LABS: Lymphocytes % (manual) 12 (10.0-50.0); Monocytes % (manual) 3 (0-12)
[2018-11-03 12:07] VITALS: BP 162/91
[2018-11-03] MEDS: cloNIDine HCL 0.1 MG TAB PO PRN (13:12)
[2018-11-03 16:49] VITALS: BP 140/88
--- NOTE | 2018-11-03 19:04 | NUR ---
PT RESTING IN BED. NO S/S ACUTE DISTRESS NOTED. ENDORSED CARE TO NIGHT NURSE.
[2018-11-03] MEDS: ALBUTEROL SULF 2.5 MG/0.5ML(0.5%) NEB SOLN NEB SCH (19:09)
--- NOTE | 2018-11-03 21:41 | NUR ---
Hospitalist paged re:patient's request for sleeping medicatio. Waiting for call back. Continue care..
[2018-11-03 22:07] VITALS: BP 125/65
--- NOTE | 2018-11-03 22:30 | NUR ---
Prashanth STATION GATEMAN returned call updated on patient status and reason for call, orders received to administer one time dose sleeping pill tonight. Continue care.
[2018-11-03] MEDS ORDERED: TEMAZEPAM 15 MG CAP PO ONE (23:00)
[2018-11-04 02:34] VITALS: BP 128/73
[2018-11-04] MEDS ORDERED: SODIUM CHLORIDE 0.9 % NEB SOLN 3ML NEB ONE ×3 (05:32→13:56)
[2018-11-04 05:50] VITALS: BP 149/97
[2018-11-04] MEDS: ALBUTEROL SULF 2.5 MG/0.5ML(0.5%) NEB SOLN NEB SCH ×4 (06:48→20:13)
[2018-11-04] MEDS ORDERED: METO25TA5 PO (07:37)
[2018-11-04] MEDS ORDERED: PANT40TA2 PO (07:39)
[2018-11-04 07:54] VITALS: BP 143/93
[2018-11-04] MEDS: FOLIC ACID 1 MG TAB PO SCH (09:46)
[2018-11-04] MEDS: PANTOPRAZOLE 40 MG/10 ML VIAL IV SCH (09:46)
[2018-11-04] MEDS: LEVOFLOXACIN 250MG 50 ML IV SCH (09:46)
[2018-11-04] MEDS: METOPROLOL TARTRATE 25 MG TAB PO SCH ×2 (09:47→22:19)
[2018-11-04] MEDS: amLODIPine BESYLATE 5 MG TAB PO SCH (09:48)
--- NOTE | 2018-11-04 11:01 | NUR ---
pt not wearing 02 takes it off sats on r/a 94 left o2 running after med neb
[2018-11-04 12:56] VITALS: BP 138/74
[2018-11-04 16:27] VITALS: BP 117/66
--- NOTE | 2018-11-04 19:01 | NUR ---
PT RESTING IN BED. NO S/S ACUTE DISTRESS NOTED. ENDORSED CARE TO NIGHT NURSE.
--- NOTE | 2018-11-04 21:18 | NUR ---
Patient's request for sleeping medication. Will page to hospitalist and continue care.
[2018-11-04 22:00] VITALS: BP 137/72
--- NOTE | 2018-11-04 22:05 | NUR ---
Hospitalist paged called re:patient's request for sleeping medication. Waiting for call back. Continue care.
--- NOTE | 2018-11-04 22:30 | NUR ---
Prashanth HEALTH CARE ASSISTANT returned call updated on patient status and reason for call, orders received to administer one time dose sleeping pill tonight. Continue care.
[2018-11-04] MEDS ORDERED: TEMAZEPAM 15 MG CAP PO ONE (23:15)
[2018-11-05] MEDS: ALBUTEROL SULF 2.5 MG/0.5ML(0.5%) NEB SOLN NEB SCH ×4 (05:46→18:58)
[2018-11-05 09:00] VITALS: BP 148/79
--- NOTE | 2018-11-05 09:04 | NUR ---
Spoke with Antony in Nuclear Medicine VQ scan will be later this afternoon. Patient and doctor aware.
[2018-11-05] MEDS: PANTOPRAZOLE 40 MG/10 ML VIAL IV SCH (10:22)
[2018-11-05] MEDS: amLODIPine BESYLATE 5 MG TAB PO SCH (10:23)
[2018-11-05] MEDS: METOPROLOL TARTRATE 25 MG TAB PO SCH ×2 (10:23→21:26)
[2018-11-05] MEDS: FOLIC ACID 1 MG TAB PO SCH (10:23)
[2018-11-05] MEDS: LEVOFLOXACIN 250MG 50 ML IV SCH (10:24)
[2018-11-05 13:00] VITALS: BP 155/89
--- NOTE | 2018-11-05 16:00 | NUR ---
Brought patient down to Nuclear medicine
--- NOTE | 2018-11-05 16:30 | NUR ---
patient back on the floor from nuclear medicine and consents signed
[2018-11-05 16:40] LABS: INR 0.98 (0.9-1.15); Partial Thromboplastin Time 26.3 sec (23.78-33.04); Prothrombin Time 10.5 sec (9.27-12.13)
[2018-11-05 17:00] VITALS: BP 135/89
--- NOTE | 2018-11-05 20:05 | NUR ---
open note assumed care of pt. upon entering room, pt awake and alert. pt denied any pain at this time, no s/s distress noted or expressed. pt updated on plan of care. made aware that pt is to be NPO after midnight for procedure in the AM. pt had no additional questions at this time. call light in reach, will continue to monitor.
[2018-11-05 21:30] VITALS: BP 151/102
[2018-11-05] MEDS ORDERED: TEMAZEPAM 15 MG CAP PO ONE (22:30)
[2018-11-05] MEDS: cloNIDine HCL 0.1 MG TAB PO PRN (22:58)
[2018-11-06 05:00] VITALS: BP 147/86
[2018-11-06] MEDS: ALBUTEROL SULF 2.5 MG/0.5ML(0.5%) NEB SOLN NEB SCH ×4 (05:48→18:51)
--- NOTE | 2018-11-06 08:00 | NUR ---
Patient ate toast went in to the room to retrieve the patient for surgery and found the patient to be eating toast. Stopped the patient and brought him down to OR. Told the OR nurse about the toast when patient was brought down to surgery.
[2018-11-06] MEDS ORDERED: NALOXONE HCL 0.4 MG/ML VIAL ONE (08:23)
[2018-11-06] MEDS ORDERED: FLUMAZENIL 0.1 MG/ML INJ 10ML MDV IV ONE (08:23)
[2018-11-06] MEDS ORDERED: SODIUM CHLORIDE LOCK 30 ML ONE (08:24)
[2018-11-06] MEDS ORDERED: LIDOCAINE 2% (LOCAL ANESTH.) PF 5ml SDV ONE (08:24)
[2018-11-06] MEDS ORDERED: fentaNYL CITRATE 100 MCG/2 ML VL ONE (08:25)
[2018-11-06] MEDS ORDERED: GLYCOPYRROLATE 0.2 MG/ML 1ML VIAL ONE (08:25)
[2018-11-06] MEDS ORDERED: HYDROmorphone HCL 2 MG/ML VL ONE (08:25)
[2018-11-06] MEDS ORDERED: LIDOCAINE HCL 2% TOP JELLY 5ML TOP ONE (08:25)
[2018-11-06] MEDS ORDERED: EPINEPHrine HCL 1 MG/1 ML AMP ONE (08:26)
--- NOTE | 2018-11-06 09:33 | NUR ---
Procedure held Got a call from OR that per doctor, procedure will be held until 1600. Made ELEVATOR TROUBLESHOOTER aware that tray is to be held for lunch. Will continue to monitor.l
[2018-11-06 09:38] VITALS: BP 136/80
[2018-11-06] MEDS: METOPROLOL TARTRATE 25 MG TAB PO SCH ×2 (09:56→22:56)
[2018-11-06] MEDS: amLODIPine BESYLATE 5 MG TAB PO SCH (09:56)
[2018-11-06] MEDS: PANTOPRAZOLE 40 MG/10 ML VIAL IV SCH (10:00)
[2018-11-06] MEDS: FOLIC ACID 1 MG TAB PO SCH (10:00)
[2018-11-06] MEDS: LEVOFLOXACIN 250MG 50 ML IV SCH (10:00)
[2018-11-06 13:25] VITALS: BP 149/79
--- NOTE | 2018-11-06 14:34 | NUR ---
NUTRITION ASSESSMENT NOTES Please refer to link notes of nutrition screen form filed under the intervention section of the plan of care for further details. Est. Needs based on IBW (75 kg): 1850 kcal to 2250 kcal (25-30 kcal/kgIBW), 60 gms to 75 gms pro (0.8-1.0 gms/kgIBW). Will continue to monitor pertinent labs and reassess nutrient needs prn Thank you. Addendum: 11/06/18 at [address] Amended: Links added.
--- NOTE | 2018-11-06 16:20 | NUR ---
Patient brought down for procedure. waiting at bedside.
[2018-11-06] MEDS: MIDAZOLAM HCL 5 MG/ML-1ML VIAL ONE ×2 (17:00→17:05)
[2018-11-06 21:53] VITALS: BP 138/87
[2018-11-06 22:00] VITALS: BP 143/83
--- NOTE | 2018-11-06 22:05 | NUR ---
PAGED HOSPITALIST FOR PT REQUEST OF SLEEPING MEDICATION
--- NOTE | 2018-11-06 22:47 | NUR ---
hospitalist received order from Toy davila for temazepam 15mg po x1. will administer per md order
[2018-11-06] MEDS ORDERED: TEMAZEPAM 15 MG CAP PO ONE (23:00)
--- NOTE | 2018-11-07 04:00 | NUR ---
paged respiratory pt used call light, upon entering room, pt awake and alert. nasal cannula off, pt coughing, unable to clear throat. pt placed back on nasal cannula at 3L saturation 86%.
--- NOTE | 2018-11-07 04:03 | NUR ---
paged hospitalist for orders in regards to pt desaturation and lack of prn order. will continue to monitor.
--- NOTE | 2018-11-07 04:18 | NUR ---
pt allowed suctioning of oral cavity with yankauer and moderate amount of thick white sputum removed. pt o2 increased to 4L and pt saturation increased to 98%. pt tolerated suctioning well. encouraged to attempt to clear throat and expel sputum. call light in reach. pt denied any distress. will continue to monitor.
[2018-11-07] MEDS: ALBUTEROL SULF 2.5 MG/0.5ML(0.5%) NEB SOLN NEB SCH ×6 (04:19→23:03)
[2018-11-07 05:00] VITALS: BP 157/96
--- NOTE | 2018-11-07 08:57 | NUR ---
PT SEEN BY DR. MENDOZA PER DR. MENDOZA HE IS PLANNING TO DISCHARGE THE PT TOMORROW.
--- NOTE | 2018-11-07 08:58 | NUR ---
SPOKE WITH SHAHIDA, SHE SAID PT DOES NOT USE OXYGEN AT HOME, SHE LIVES WITH THE PT AND TAKE CARE OF THE PT AND PT IS UNDER [facility] WITH NURSE AND PHYSICAL THERAPY.
[2018-11-07 09:00] VITALS: BP 151/90
--- NOTE | 2018-11-07 09:45 | NUR ---
PT SEEN BY DR. COBOS PER DR. COBOS PT WILL FOLLOW UP WITH HIM IN 2 WEEKS, GAVE CHEST XRAY REQUEST IN 2 WEEKS. REQUEST IN CHART.
[2018-11-07] MEDS: LEVOFLOXACIN 250MG 50 ML IV SCH (10:08)
[2018-11-07] MEDS: PANTOPRAZOLE 40 MG/10 ML VIAL IV SCH (10:08)
[2018-11-07] MEDS: FOLIC ACID 1 MG TAB PO SCH (10:08)
--- NOTE | 2018-11-07 10:08 | NUR ---
Respiratory note: SCHEDULED MED NEB TX NOT GIVEN. PT IS JUST NOW HAVING BREAKFAST, RN AT BEDSIDE AND AWARE OF REFUSAL. NO RESP DISTRESS NOTED.
[2018-11-07] MEDS: amLODIPine BESYLATE 5 MG TAB PO SCH (10:10)
[2018-11-07] MEDS: METOPROLOL TARTRATE 25 MG TAB PO SCH ×2 (10:11→21:40)
[2018-11-07 13:00] VITALS: BP 130/83
[2018-11-07 17:00] VITALS: BP 124/67
--- NOTE | 2018-11-07 17:07 | NUR ---
assessment Patient is a 73 year old male who is confused. Per patient's Eveline who is at bedside prior to admission patient lived at home with her and functioned with her assistance. Patient has a fww, wheelchair and nebulizer for home use. Patient's PCP is Dr. Powell at the [facility]. Patient is on service with [facility]. Patient has an advance directive, but no POA. Eveline is patients [facility] caregiver. Patient has good family support at home. I informed Eveline of her right to privacy as well as her right to participate in patient's discharge planning. I informed Eveline of her right to speak with a 7th grade social studies teacher regarding patient's care. Per consult [facility] for physical therapy. Eveline has been given a list of medicare providers. Eveline has signed for [facility] to resume service. MD order has been sent to [facility]. Per Riccardo service will resume on 11/09/18. Eveline has been notified. Addendum: 11/07/18 at 1710 by Shyla QUINTANA Amended: Links added.
--- NOTE | 2018-11-07 19:25 | NUR ---
Opening Shift Note Assumed care of patient, awake and alert. No S/S of distress/SOB or pain. Instructed on POC and to call for assist PRN, will continue to monitor for changes Q1hr and PRN. HOB elevated, bed locked and in lowest position, call light within reach.Pt on 4l NC, educated pt to keep oxygen on. bed alarm on, bed locked, will continue to monitor pt.
--- NOTE | 2018-11-07 20:00 | NUR ---
PT ROUNDS Reinforced patient multiple times the need to keep the nasal cannula for his oxygen on. Will continue to monitor patient.
[2018-11-07 22:00] VITALS: BP 135/73
--- NOTE | 2018-11-07 22:00 | NUR ---
PAGED HOSPITALIST FOR PT REQUEST OF SLEEPING MEDICATION
[2018-11-07] MEDS ORDERED: TEMAZEPAM 15 MG CAP PO ONE (22:45)
--- NOTE | 2018-11-07 22:45 | NUR ---
PT ROUNDS Pt use of call light instructed pt that still haven't received order for sleeping aid, raised HOB higher reinforced pt the need for oxygen and to maintain nasal cannula. Will continue to monitor pt.
--- NOTE | 2018-11-07 23:05 | NUR ---
RT AT BEDSIDE
--- NOTE | 2018-11-07 23:50 | NUR ---
IV removal IV DC'd with clean sterile technique, catheter fully intact. Pressure dressing applied to site. Patient tolerated well. NOTE: attempts for IV insertion unsuccessful, will give patient a rest and will reattempt will continue to monitor pt,.
--- NOTE | 2018-11-08 00:01 | NUR ---
KAILYN HOSPITALIST Pt lung sounds wet, Vitals BP 153/90, HR 72, RR 22, SPO2 95% will continue to monitor pt
[2018-11-08] MEDS ORDERED: FUROSEMIDE 20 MG/2 ML VIAL IV ONE (00:15)
--- NOTE | 2018-11-08 00:23 | NUR ---
PT ROUNDS PT removed NC, Reinforced and educated pt importance of wearing NC, inserted NC, will continue to monitor pt.
[2018-11-08 05:03] VITALS: BP 146/86
[2018-11-08] MEDS: ALBUTEROL SULF 2.5 MG/0.5ML(0.5%) NEB SOLN NEB SCH ×3 (06:39→14:11)
--- NOTE | 2018-11-08 08:40 | NUR ---
SPOKE WITH DR. MENDOZA HE SAID HE WILL DISCHARGE THE PT WITH ANTIBIOTIC AND PT TO RESUME HOME MEDICATIONS.
[2018-11-08 09:00] VITALS: BP 143/88
--- NOTE | 2018-11-08 09:00 | NUR ---
CALLED SHAHRAM ARIAS CARD GRINDER HELPER FOR HOME O2 ORDER. SHE SAID SHE WILL CALL ME BACK FOR UPDATE.
--- NOTE | 2018-11-08 09:24 | NUR ---
I faxed oxygen order to [facility].
--- NOTE | 2018-11-08 10:14 | NUR ---
Refaxed home oxygen order to [facility].
[2018-11-08] MEDS: FOLIC ACID 1 MG TAB PO SCH (10:44)
[2018-11-08] MEDS: METOPROLOL TARTRATE 25 MG TAB PO SCH (10:45)
[2018-11-08] MEDS: PANTOPRAZOLE 40 MG/10 ML VIAL IV SCH (10:46)
[2018-11-08] MEDS: amLODIPine BESYLATE 5 MG TAB PO SCH (10:46)
[2018-11-08 11:03] VITALS: BP 121/74
[2018-11-08 13:00] VITALS: BP 150/88
--- NOTE | 2018-11-08 14:17 | NUR ---
KAILYN OMALLEY INTERACTIVE ACCOUNT MANAGER TO FOLLOW UP HOME OXYGEN.
--- NOTE | 2018-11-08 15:59 | NUR ---
KAILYN OMALLEY QUICK MIXER OPERATOR TO FOLLOW UP HOME O2. WAITING FOR CALL BACK
[2018-11-08 17:00] VITALS: BP 112/72
--- NOTE | 2018-11-08 17:15 | NUR ---
portable oxygen delivered at bedside
--- NOTE | 2018-11-08 17:38 | NUR ---
Discharge instructions given as ordered. Encourage to follow up with DR. HORTON ON 11/14/18 AT 8AM, TEL# AND ADDRESS PROVIDED TO THE PT . All questions and concerns addressed. Patient verbalized understanding. Medication reconciliation form completed and copy given to patient. IV removed with catheter intact, pressure dressing applied. Patient taken to vehicle via wheelchair with all personal belongings, accompanied by staff and family member. No distress noted at time of departure.
== END 2018-11-08 17:38 | disposition home health service (06) | DRG 871 ==
LOC: ER 16:24 → EDBD 16:24 → OVERFLOW 21:13 → CENTRAL 22:05
PROVIDERS: ADMIT Nurse Practitioner; ATTEND Family Medicine
PROC: 0B9F8ZX Drainage of Right Lower Lung Lobe, Via Natural or Artificial Opening Endoscopic, Diagnostic (ICD-10-PCS; principal; 2018-11-06 16:55)
DX: A41.1 Sepsis due to other specified staphylococcus (principal); J18.1 Lobar pneumonia, unspecified organism; J96.21 Acute and chronic respiratory failure with hypoxia; J44.0 Chronic obstructive pulmonary disease with (acute) lower respiratory infection; J44.1 Chronic obstructive pulmonary disease with (acute) exacerbation; I13.0 Hypertensive heart and chronic kidney disease with heart failure and stage 1 through stage 4 chronic kidney disease, or unspecified chronic kidney disease; N18.3 Chronic kidney disease, stage 3 (moderate); I70.0 Atherosclerosis of aorta; M85.80 Other specified disorders of bone density and structure, unspecified site; K21.9 Gastro-esophageal reflux disease without esophagitis; I50.9 Heart failure, unspecified; F17.210 Nicotine dependence, cigarettes, uncomplicated; Z86.73 Personal history of transient ischemic attack (TIA), and cerebral infarction without residual deficits; Z82.0 Family history of epilepsy and other diseases of the nervous system; Z82.3 Family history of stroke; Z82.49 Family history of ischemic heart disease and other diseases of the circulatory system; Z83.3 Family history of diabetes mellitus; Z87.11 Personal history of peptic ulcer disease; Z74.01 Bed confinement status
CPT/HCPCS: 36415; 36600; 71045; 71250; 78582; 80053; 82805; 83605; 83880; 84484; 85007; 85025; 85027; 85379; 85610; 85730; 86850; 86900; 86901; 87040; 87070; 87075; 87077; 87186; 87205; 87804; 93005; 93970; 94640; 94761; 96361; 96365; 99291; C9113; G0378; J0171; J1956; J2001; J2250